=== PATIENT | male | born 1950 | race Caucasian/White ===

== ENCOUNTER 2019-09-08 03:05 | Inpatient (IN) ==
[2019-09-08 03:46] LABS: Appearance Urine Clear (Clear); Bilirubin Urine Negative (Negative); Blood Urine Negative (Negative); Color Urine Yellow; Glucose Urine UA Negative (Negative); Ketones Urine Negative (Negative); Leukocyte Esterase Urine Negative (Negative); Nitrite Urine Negative (Negative); Protein Urine Negative (Negative); Urobilinogen Urine Negative (Negative)
[2019-09-08 04:09] LABS: Basophils # (auto) 0.01 K/uL (0-0.2); Basophils % (auto) 0.2 %; Eosinophils # (auto) 0.08 K/uL (0-0.5); Eosinophils % (auto) 1.5 %; Hematocrit (blood only) 39.7 % (42-52); Hemoglobin 13.8 g/dL (14.0-18.0); Immature Granulocytes # (auto) 0.03 K/uL (0.00-0.02); Immature Granulocytes % (auto) 0.5 %; Lymphocytes # (auto) 1.42 K/uL (1.2-3.4); Lymphocytes % (auto) 25.8 %; Mean Corpuscular Hemoglobin 32.3 pg (25-34); Mean Corpuscular Hgb Conc 34.8 g/dL (32-36); Mean Platelet Volume 11.3 fL (7.4-10.4); Monocytes # (auto) 0.41 K/uL (0.11-0.59); Monocytes % (auto) 7.4 %; Neutrophils # (auto) 3.56 K/uL (1.4-6.5); Neutrophils % (auto) 64.6 %; Platelet Count 143 K/uL (130-400); RDW Coefficient of Variation 12.9 % (11.5-14.5); Red Blood Count 4.27 M/uL (4.7-6.1); White Blood Count 5.51 K/uL (4.8-10.8)
[2019-09-08 04:15] LABS: Amphetamines+Metham, Urine Neg (Neg); Barbiturates, Urine Neg (Neg); Benzodiazepine, Urine Neg (Neg); Cocaine, Urine Neg (Neg); MDMA (Ecstacy), Urine Neg (Neg); Methadone, Urine Neg (Neg); Opiate, Urine Neg (Neg); Phencyclidine, Urine Neg (Neg)
[2019-09-08 04:26] LABS: Albumin Level 3.8 gm/dl (3.4-5.0); BUN Creatinine Ratio 14.8 (10-20); Calcium 9.1 mg/dl (8.5-10.1); Creatinine Clr Calc Pharmacy 60.2 ml/min; Est GFR (African American) 85.3; Est GFR (Non-African American) 73.6
[2019-09-08 04:36] LABS: Albumin Globulin Ratio 1.2 (0.9-2); Bilirubin,Total 1.4 mg/dl (0.2-1); Globulin 3.3 gm/dl (2.5-4.0); Thyroid Stimulating Hormone 2.6 uIu/ml (0.300-4.500); Total Protein 7.1 gm/dl (6.4-8.2)
[2019-09-08 04:41] LABS: Acetaminophen < 2 ug/ml (10-30); Salicylate < 1.7 mg/dl (2.8-20)
--- NOTE | 2019-09-08 06:51 | Emergency Department Note ---
ED Visit Note 0649: Signout from Dr. antunez. Awaiting psychiatric final evaluation and placement. Patient will be evaluated by [facility], awaiting the recommendations. 1500: Vital signs stable. Case signed out to Dr. Sandoval. .
--- NOTE | 2019-09-08 07:04 | Emergency Department Note ---
Entered by Shahzad Aragon acting as a scribe for History of Present Illness General Chief complaint: Mental Health Evaluation Stated complaint: hallucinating Time Seen by Provider: 09/08/19 03:12 Source: patient History of Present Illness Onset (ago): day(s) (this morning) Location: head Pain Consistency: + other (an episode) Quality: + other (hallucinations) Associated symptoms: + other (Negative for CP, SOB, nausea, and vomiting.) The patient is a 68 year old male who presents to the emergency department with complaints of an episode of hallucinations occurring this morning. The patient states that he had an episode tonight that woke him up. He notes that when he woke it, it seemed like there were people there that were not there before. He reports that he then called police. He states that he felt fine prior to going to sleep. The patient believes that it is January 2023. He notes that he does not know what he ate for dinner. He reports that he does not see a psychiatrist or therapist. He denies any CP, SOB, nausea, and vomiting. The patient states that he does not have any chronic medical problems and he notes that he does not take any medication. He reports that he had a few glasses of wine today. The patient states that he did not use any drugs tonight. The patient does not remember an evaluation here in the emergency department 6 months ago for an episode similar to this of acute psychosis. EMS provide additional history stating that the patient was outside his home stating that there were people in his home and that there were people climbing out of the chimney of the [place]. The patient was insistent that [place] police signed their flashlights up to the chimney to see the people climbing out of it. Home Medications Home Medications Medication Instructions Recorded Confirmed Type No Known Home Medications 03/03/19 09/08/19 History Allergies Allergy/AdvReac Type Severity Reaction Status Date / Time No Known Allergies Allergy Unknown Verified 03/03/19 08:57 Past Med/Surg History Medical History (Updated 09/08/19 @ 06:53 by Shahzad Aragon) Mental health assessment declined (Inactive) No significant past medical history Social History Preferred Language: Filipino marital status: Single Current Living Situation: Alone current occupational status: retired Feels Safe at Home: Yes Smoking Status: Former smoker Tobacco Type: cigarettes ; Review of Systems See HPI for pertinent positives & negatives. and A total of 10 systems reviewed and were otherwise negative Physical Exam Vital Signs Vital Signs - 24 hr 09/08/19 03:13 09/08/19 04:39 Temperature 36.6 C Temperature Source Oral Pulse Rate 67 Pulse Rate [Finger] 85 Respiratory Rate 18 18 Blood Pressure 174/97 H Blood Pressure [Right Arm] 159/85 H Blood Pressure Mean 122 Blood Pressure Mean [Right Arm] 109 Pulse Oximetry 99 100 Oxygen Delivery Method Room Air Room Air Sepsis Recent Fever Within 48 Hours No Sepsis Action Taken by Nursing No Action Required General: The patient is cachectic appearing and disheveled. HEENT: Head - normocephalic and atraumatic Pupils are equal, round, and reactive to light. Extraocular eye muscles are intact, and sclera are anicteric. Nose - moist nasal mucosa without discharge. Mouth - moist buccal mucosa. Oropharynx is nonerythematous and there is no tonsillar exudate or edema noted. Neck: Supple; no JVD, nuchal rigidity, cervical lymphadenopathy. Heart: Regular rate and rhythm. There is a normal S1 and S2 with no murmurs, clicks, or gallops appreciated. Lungs: Clear to auscultation bilaterally with no wheezes, rales, or rhonchi. Abdomen: Soft, completely nontender, nondistended, with good bowel sounds. There are no palpable pulsatile masses or hepatosplenomegaly. There is no guarding, rigidity, or rebound noted. Extremities: No evidence of cyanosis, clubbing, or edema. There are easily palpa ble peripheral pulses. Skin: warm and dry with good turgor and no rashes. Psych: Confused about year and month, admits to alcohol use, denies any other drug use, believes that his hallucinating was actually a dream. Course Course 0320: The patient was evaluated in room A8. A complete history and physical exam was performed. 0508: The patient was felt to be medically cleared at this time. The psych case preparer and liner evaluated the patient. He exhibited more significant paranoid behavior. He states that his friend placed a chip in his arm in order to track him. There is concern that the patient is not able to take care of himself, so the psych case preparer and liner will petition a 302. 5206: Per review of EMR, the patient weighed 67.9kg in Feb, 2019. He now weighs 61.9 kg 0634: The patient is becoming agitated. He is telling the nurse that he is going to leave out the window. I suggested Ativan to help him relax. 0640: I rechecked the patient. We are awaiting the arrival of [facility]. he is refusing anything to help him relax. He is doing laps around the room. 0645: The patient was signed out to Dr. Butler at the change of shift. Medical Decision Making Differential Diagnosis Differential diagnoses include: thought disorder, acute psychosis, alcohol intoxication, and sleep disorder. Medical Records Attestation: I reviewed the patient's medical records. Home Medications Current Medication List: was personally reviewed by me Laboratory Data Attestation: I reviewed the patient's lab results. Result diagrams: 09/08/19 03:54 09/08/19 03:54 Lab Results 09/08/19 09/08/19 09/08/19 Range/Units 03:38 03:38 03:54 WBC 5.51 (4.8-10.8) K/uL RBC 4.27 L (4.7-6.1) M/uL Hgb 13.8 L (14.0-18.0) g/dL Hct 39.7 L (42-52) % MCV 93.0 (80-100) fL MCH 32.3 (25-34) pg MCHC 34.8 (32-36) g/dL RDW Std Deviation 44.0 (36.4-46.3) fL RDW Coeff of Jay 12.9 (11.5-14.5) % Plt Count 143 (130-400) K/uL MPV 11.3 H (7.4-10.4) fL Immature Gran % (Auto) 0.5 % Neut % (Auto) 64.6 % Lymph % (Auto) 25.8 % [place] % (Auto) 7.4 % Eos % (Auto) 1.5 % Baso % (Auto) 0.2 % Immature Gran # (Auto) 0.03 H (0.00-0.02) K/uL Neut # (Auto) 3.56 (1.4-6.5) K/uL Lymph # (Auto) 1.42 (1.2-3.4) K/uL [place] # (Auto) 0.41 (0.11-0.59) K/uL Eos # (Auto) 0.08 (0-0.5) K/uL Baso # (Auto) 0.01 (0-0.2) K/uL Sodium (136-145) mmol/L Potassium (3.5-5.1) mmol/L Chloride (98-107) mmol/L Carbon Dioxide (21-32) mmol/L Anion Gap (3-11) BUN (7-18) mg/dl Creatinine (0.6-1.4) mg/dl Est Cr Clr Drug Dosing ml/min Est GFR ( Amer) Est GFR (Non-Af Amer) BUN/Creatinine Ratio (10-20) Glucose (70-99) mg/dl Calcium (8.5-10.1) mg/dl Total Bilirubin (0.2-1) mg/dl AST (15-37) U/L ALT (12-78) U/L Alkaline Phosphatase (45-117) U/L Total Protein (6.4-8.2) gm/dl Albumin (3.4-5.0) gm/dl Globulin (2.5-4.0) gm/dl Albumin/Globulin Ratio (0.9-2) TSH (0.300-4.500) uIu/ml Urine Color Yellow Urine Appearance Clear (Clear) Urine pH 5.0 (4.5-7.5) Ur Specific [place] 1.020 (1.000-1.030) Urine Protein Negative (Negative) Urine Glucose (UA) Negative (Negative) Urine Ketones Negative (Negative) Urine Blood Negative (Negative) Urine Nitrite Negative (Negative) Urine Bilirubin Negative (Negative) Urine Urobilinogen Negative (Negative) Ur Leukocyte Esterase Negative (Negative) Salicylates (2.8-20) mg/dl Urine Opiates Screen Neg (Neg) Ur Methadone, Qual Neg (Neg) Acetaminophen (10-30) ug/ml Urine Barbiturates Neg (Neg) Ur Phencyclidine (PCP) Neg (Neg) U Amphetamin/Meth Scrn Neg (Neg) MDMA (Ecstasy) Screen Neg (Neg) U Benzodiazepines Scrn Neg (Neg) Ur Cocaine Metabolite Neg (Neg) U Marijuana (THC) Screen Neg (Neg) Ethyl Alcohol mg/dL (0-3) mg/dl 09/08/19 09/08/19 09/08/19 Range/Units 03:54 03:54 03:54 WBC (4.8-10.8) K/uL RBC (4.7-6.1) M/uL Hgb (14.0-18.0) g/dL Hct (42-52) % MCV (80-100) fL MCH (25-34) pg MCHC (32-36) g/dL RDW Std Deviation (36.4-46.3) fL RDW Coeff of Jay (11.5-14.5) % Plt Count (130-400) K/uL MPV (7.4-10.4) fL Immature Gran % (Auto) % Neut % (Auto) % Lymph % (Auto) % [place] % (Auto) % Eos % (Auto) % Baso % (Auto) % Immature Gran # (Auto) (0.00-0.02) K/uL Neut # (Auto) (1.4-6.5) K/uL Lymph # (Auto) (1.2-3.4) K/uL [place] # (Auto) (0.11-0.59) K/uL Eos # (Auto) (0-0.5) K/uL Baso # (Auto) (0-0.2) K/uL Sodium 142 (136-145) mmol/L Potassium 4.0 (3.5-5.1) mmol/L Chloride 109 H (98-107) mmol/L Carbon Dioxide 28 (21-32) mmol/L Anion Gap 5.0 (3-11) BUN 16 (7-18) mg/dl Creatinine 1.05 (0.6-1.4) mg/dl Est Cr Clr Drug Dosing 60.2 ml/min Est GFR ( Amer) 85.3 Est GFR (Non-Af Amer) 73.6 BUN/Creatinine Ratio 14.8 (10-20) Glucose 114 H (70-99) mg/dl Calcium 9.1 (8.5-10.1) mg/dl Total Bilirubin 1.4 H (0.2-1) mg/dl AST 25 (15-37) U/L ALT 24 (12-78) U/L Alkaline Phosphatase 61 (45-117) U/L Total Protein 7.1 (6.4-8.2) gm/dl Albumin 3.8 (3.4-5.0) gm/dl Globulin 3.3 (2.5-4.0) gm/dl Albumin/Globulin Ratio 1.2 (0.9-2) TSH 2.600 (0.300-4.500) uIu/ml Urine Color Urine Appearance (Clear) Urine pH (4.5-7.5) Ur Specific [place] (1.000-1.030) Urine Protein (Negative) Urine Glucose (UA) (Negative) Urine Ketones (Negative) Urine Blood (Negative) Urine Nitrite (Negative) Urine Bilirubin (Negative) Urine Urobilinogen (Negative) Ur Leukocyte Esterase (Negative) Salicylates < 1.7 L (2.8-20) mg/dl Urine Opiates Screen (Neg) Ur Methadone, Qual (Neg) Acetaminophen < 2 L (10-30) ug/ml Urine Barbiturates (Neg) Ur Phencyclidine (PCP) (Neg) U Amphetamin/Meth Scrn (Neg) MDMA (Ecstasy) Screen (Neg) U Benzodiazepines Scrn (Neg) Ur Cocaine Metabolite (Neg) U Marijuana (THC) Screen (Neg) Ethyl Alcohol mg/dL < 3.0 (0-3) mg/dl Blood Pressure Blood Pressure Findings: Elevated blood pressure Blood Pressure Disposition: elevated BP felt to be situational MDM Narrative The patient is a 68 year old male who presents to the emergency department with complaints of an episode of hallucinations occurring this morning. I remember this patient's case from 6 months ago. He was accompanied by his very good friend who explained that he has had previous episodes of hallucinations and acute psychosis. The patient is unwilling to sign himself in voluntarily or even recognize that there is any issue. We are awaiting evaluation by the [facility] delegate. The case will be signed out to Dr. Butler at change of shift awaiting disposition. Impression & Plan Acute psychosis, Paranoia, Weight loss Discharge Plan Visit Data Chief Complaint: Mental Health Evaluation Stated Complaint: hallucinating ED Provider: Indra Butler Discharge Problem: Acute psychosis, Paranoia, Weight loss Patient Disposition: Still a Patient Forms Stand Alone Forms: My [facility], Suicide Prevention Resources Prescriptions Prescriptions: No Action No Known Home Medications RF: 0 Referrals Referrals: PCP,NO [Primary Care Provider] - The scribe's documentation has been prepared under my direction and personally reviewed by me in its entirety. I confirm that the note above accurately reflects all work, treatment, procedures, and medical decision making performed by me.
[2019-09-08] MEDS ORDERED: SODIUM CHLORIDE 0.65% NA SOLN 45 ML (OCEAN) PRN (14:25)
[2019-09-08] MEDS ORDERED: MAGNESIUM HYDROXIDE SUSP 30 ML UDC PO PRN (14:25)
[2019-09-08] MEDS ORDERED: ACETAMINOPHEN 325 MG TAB PO PRN (14:25)
[2019-09-08] MEDS ORDERED: BISMUTH SUBSALICYLATE PER ML OMNICELL CHARGE PO PRN (14:25)
[2019-09-08] MEDS ORDERED: ALUMINUM/MAGNESIUM SUSP 30 ML UDC PO PRN (14:25)
--- NOTE | 2019-09-08 15:25 | Emergency Department Note ---
ED Visit Note I assumed care at the change of shift, the patient was awaiting bed placement. The patient has been accepted at this [facility] facility, [address]. He is being transferred upstairs. .
--- NOTE | 2019-09-08 16:05 | History & Physical ---
Date of Service September 08, 2019 Impression / Recommendations Impression 68-year-old male admitted involuntarily for inpatient psychiatric admission on 09/08/19 after calling 911 to report paranoia as a result of hallucinations. Pt was brought to the ED, and there was reportedly concern for patient's safety when considering discharge home - as he continues to live independently with some assistance from a neighbor/partner. He has a reported diagnosis of Lewy body dementia. A 302 warrant was issued by [facility] and ED physician signed off on commitment, recommending inpatient psychiatric treatment. Pt was referred to multiple [facility] facilities, but was not accepted. He is accepted to our unit to coordinate discharge planning to allow for safe return home with adequate supervision or other appropriate discharge plans. Pt is not a reliable historian, and collateral information from his partner will be appreciated. It is not clear that he has a formal psychiatric history. Will will order trazodone 25mg TID scheduled to reduce anxiety and calm any agitation. Will also have 25mg doses available prn for acute anxiety/agitation. Pt will be encouraged to participate in group programming where appropriate/tolerated. We will work with his outpatient supports to coordinate appropriate discharge plans. At this time, patient is presenting as acutely confused and disoriented - he is at risk of harm to self presently, and it is not likely he would be able to function at home independently in his current condition. Inpatient psychiatric admission is medically necessary until this discharge options can be explored. Dr. Lacey Gold was directly involved in review and discussion of the patient's case and participated in medical decision making regarding treatment recommendations. (1) Paranoia: 09/08 - Paranoia and reported hallucinations are likely related to underlying Lewy body dementia, rather than a primary psychiatric condition - none the less, they are interfering with safe functioning within the home and patient is not considered safe for discharge without a more formal review of safety planning - Will attempt to gather collateral information to determine if there is a prior psychiatric history or other concerns to suggest his paranoia is better explained as a primary thought discharge - Coordinate care with Dr. Ronquillo at [facility] - Encourage activities that will increased patient's comfort - including calming familiar activities, permission to have familiar items - Family meeting with outpatient supports to discuss discharge options - as it is not clear if patient is safe to be living independently - Will offer trazodone 25mg TID scheduled to reduce anxiety; avoid neuroleptics as they are generally avoided in individuals with Lewy body dementia - Will also have trazodone 25mg available prn for acute anxiety/agitation - can adjusted dosing based on tolerance (2) Lewy body dementia with behavioral disturbance: 09/08 - Coordinate care with outpatient provider, unclear if patient is working with a neurologist or other specialist - It is likely some consideration will need to be put into placement options as his condition progresses - Patient should be frequently reoriented to person, place, time, event, and intervention to be performed. Pt should be permitted to utilize corrective lenses and assistive hearing devices when appropriate. Permit use of familiar comfort items when appropriate as well. Keep patient awake and active during the day, with light on in room. Conversely, dark room should be maintained at night with sleep being encouraged. Engage patient in group participation when appropriate/tolerated - MNPR due to concern for agitation Risk Factors Assessment Male: Yes : Yes Health Problems: Yes Mental Health Diagnoses: No Protective Factors Assessment Employed: No (Retired) Psychiatric History Identifying Data NARESH SOTO is a 68-year-old M who currently lives independently in [place], [place]. Pt has no known psychiatric diagnoses, but was reportedly recently diagnosed with Lewy Body dementia. He was admitted on 09/08/19 14:25 on a 302 involuntary commitment for paranoia, reports of hallucinations, and perceived inability to care for self outside of the inpatient setting. Pt is a limited historian, and information is gathered from hospital documentation. Chief Complaint "So, do you want to tell me what's going on here? Where am I?" History of Present Illness Naresh Soto is a 68-year-old male admitted involuntarily for inpatient psychiatric treatment after presenting to the ED for mental health evaluation. He had reportedly called 911 and verbalized paranoia related to hallucinations he had been experiencing. ED documentation suggests the patient had awoken from a nap to experience visual hallucinations, causing him to believe that other people were in his home. It is reported that patient has a diagnosis of Lewy body dementia. He had one ED presentation with similar concerns back in 02/2019 - and was discharged home with care to be provided by his partner. Partner remains involved in his treatment presently. Multiple referrals were placed for geripsych treatment, but none were accepting the patient for admission. This provider received report that the patient has overwhelmed and appearing distressed upon arrival to unit. This provider attempted to meet with the patient to complete psychiatric H&P and help the patient feel more comfortable. He is observed to be standing in the hallway outside of his room. He is pleasant with initial exchange of greetings, wiling to shake this provider's hand. He then requests to know what is going on and when he will be permitted to leave. Pt was informed he has been admitted to the behavioral health unit, and he continues to demonstrate confusion. He requests to know where the other "inductees" are kept, and when asked to further clarify this inquiry - he is unable to do so. Pt requested to speak to his /partner, and then requested to go home. He implies that "Maribell is in on this, but I'm not staying - she can stay if she wants but I'm going home." Pt was informed that we would attempt to reach out to his partner to help ease the transition. He made multiple comments about his roommate "vomiting on the floor over there" - which were not true statements. Pt shares with this provider "I remember you from the last time, and I don't think things ended well, I want to go home." Pt was informed that he would at least be spending the night with us, and was asked if this provider could get him anything to feel more comfortable. He requests his shoes. When informed the laces would need to be removed in order for them to be worn, he states - "What? Why? Are they not my laces? Are you selling shoes or something? I want my shoes!" Pt was not able to provide any productive history - and was permitted to visit with his /partner who arrived on the unit shortly after our initial encounter. Past Psychiatric History Previous Psych History: Unknown - no verified psychiatric history Outpatient Services: Reportedly has seen Dr. Ronquillo at [facility] - continued involvement in unclear presently Previous Psych Admissions: Unknown Describe Attempts in the Past: denies Allergies Allergy/AdvReac Type Severity Reaction Status Date / Time No Known Allergies Allergy Unknown Verified 03/03/19 08:57 Home Medications Home Medications Medication Instructions Recorded Confirmed Type No Known Home Medications 03/03/19 09/08/19 History Family History Family History of: None Alcohol History Hx of Alcohol Use Over the Past 12 Months: Yes (reports drinking wine, unknown amount) Unknown alcohol consumption Smoking Use tobacco type: cigarettes Smoking Status: Former smoker Substance History Hx of Prescription Med Misuse Over the Past 12 Months: No Hx of Over the Counter Med Misuse Over the Past 12 Months: No Hx of Inhalent Misuse Over the Past 12 Months: No Hx of Organic Substance Use Over the Past 12 Months: No Hx of Illegal Substances/Street Drug Use Over Past 12 Months: No Problems as a Result of Past Substance Use: None Identified Substance use history is unknown Personal History Living Arrangements: Apartment (independently, pareshnter lives close-by) Legal Problems Comment: Unknown Psychological Trauma History Comment: Unknown Patient History Medical History (Updated 09/08/19 @ 18:49 by Malou Huston PA-C) Lewy body dementia with behavioral disturbance Mental health assessment declined (Inactive) No significant past medical history Social History Preferred Language: Setswana Communication Ability: Effective Communication Ability Comment: requires simple tasks with reassurance and assistance [employer] [place] [employer] [place] Required: No Beliefs That Will Affect Care: None marital status: Single Current Living Situation: Alone current occupational status: retired Feels Safe at Home: Yes Smoking Status: Former smoker Tobacco Type: cigarettes ; Review of Systems Review of Systems: Constitutional: denied Cardiovascular: denied Respiratory: denied Gastrointestinal: denied Neurological: denied Psychiatric: denies symptoms other than stated above Total of at least 10 systems reviewed, pertinent positives as above and in HPI. Physical Exam Psychiatric: Orientation: alert, oriented to person and + guarded; + not oriented to place, + not oriented to time and + uncooperative Apperance: appropriately dressed, + disheveled and appeared stated age Thin-appearing male, appearing anxiety and somewhat distressed. He is observed to be pacing during encounter, holding all of his belongings. He is dressed in paper scrubs. He has long hair and a long miner - he appears clean, but disheveled. Eye Contact: + fair eye contact Motor Behavior: + psychomotor agitation (appearing restless and somewhat agitated) Speech: normal rate/rhythm/volume of speech (irritable tone) Affect: + irritable affect and mood congruent with affect Mood: + irritable mood ("I don't like this. I remember what happened last time. I'm not staying") Thought Process: + tangential thought process; + thought process not goal directed, + thought process not linear or logical, + thought process not clear or coherent and + thought association not intact Disorganized, unable to participate in productive conversation Thought Content: + preoccupation and + paranoid (believing he is an "inductee" into some "program") Suicidal Thoughts: denies suicidal thoughts Homicidal Thoughts: denies homicidal thoughts Hallucinations: + auditory hallucinations and + visual hallucinations Reports of hallucinations leading to ED presentation, though patient is unable to describe them presently Cognition: + recent memory not intact, + remote memory not intact and + attention not intact Insight: + severely impaired insight Judgement: + severely impaired judgement Vital Signs (Past 24 Hours): Last Vital Signs Temp 36.6 C 09/08/19 03:13 Pulse 78 09/08/19 15:24 Resp 20 09/08/19 15:24 BP 158/83 H 09/08/19 15:24 Pulse Ox 94 09/08/19 15:24 Exam Statement: A physical exam was performed in the ER prior to admission to the unit by Dr. Mayelin Jenkins DO. I accept that physical as correct/medical clearance for the inpatient physical exam. Results & Data Laboratory Results Laboratory Results - last 24 hr 09/08/19 09/08/19 09/08/19 03:38 03:38 03:54 WBC 5.51 RBC 4.27 L Hgb 13.8 L Hct 39.7 L MCV 93.0 MCH 32.3 MCHC 34.8 RDW Std Deviation 44.0 RDW Coeff of Jay 12.9 Plt Count 143 MPV 11.3 H Immature Gran % (Auto) 0.5 Neut % (Auto) 64.6 Lymph % (Auto) 25.8 O'Brien % (Auto) 7.4 Eos % (Auto) 1.5 Baso % (Auto) 0.2 Immature Gran # (Auto) 0.03 H Neut # (Auto) 3.56 Lymph # (Auto) 1.42 O'Brien # (Auto) 0.41 Eos # (Auto) 0.08 Baso # (Auto) 0.01 Sodium Potassium Chloride Carbon Dioxide Anion Gap BUN Creatinine Est Cr Clr Drug Dosing Est GFR ( Amer) Est GFR (Non-Af Amer) BUN/Creatinine Ratio Glucose Calcium Total Bilirubin AST ALT Alkaline Phosphatase Total Protein Albumin Globulin Albumin/Globulin Ratio TSH Urine Color Yellow Urine Appearance Clear Urine pH 5.0 Ur Specific [place] 1.020 Urine Protein Negative Urine Glucose (UA) Negative Urine Ketones Negative Urine Blood Negative Urine Nitrite Negative Urine Bilirubin Negative Urine Urobilinogen Negative Ur Leukocyte Esterase Negative Salicylates Urine Opiates Screen Neg Ur Methadone, Qual Neg Acetaminophen Urine Barbiturates Neg Ur Phencyclidine (PCP) Neg U Amphetamin/Meth Scrn Neg MDMA (Ecstasy) Screen Neg U Benzodiazepines Scrn Neg Ur Cocaine Metabolite Neg U Marijuana (THC) Screen Neg Ethyl Alcohol mg/dL 09/08/19 09/08/19 09/08/19 03:54 03:54 03:54 WBC RBC Hgb Hct MCV MCH MCHC RDW Std Deviation RDW Coeff of Jay Plt Count MPV Immature Gran % (Auto) Neut % (Auto) Lymph % (Auto) O'Brien % (Auto) Eos % (Auto) Baso % (Auto) Immature Gran # (Auto) Neut # (Auto) Lymph # (Auto) O'Brien # (Auto) Eos # (Auto) Baso # (Auto) Sodium 142 Potassium 4.0 Chloride 109 H Carbon Dioxide 28 Anion Gap 5.0 BUN 16 Creatinine 1.05 Est Cr Clr Drug Dosing 60.2 Est GFR ( Amer) 85.3 Est GFR (Non-Af Amer) 73.6 BUN/Creatinine Ratio 14.8 Glucose 114 H Calcium 9.1 Total Bilirubin 1.4 H AST 25 ALT 24 Alkaline Phosphatase 61 Total Protein 7.1 Albumin 3.8 Globulin 3.3 Albumin/Globulin Ratio 1.2 TSH 2.600 Urine Color Urine Appearance Urine pH Ur Specific [place] Urine Protein Urine Glucose (UA) Urine Ketones Urine Blood Urine Nitrite Urine Bilirubin Urine Urobilinogen Ur Leukocyte Esterase Salicylates < 1.7 L Urine Opiates Screen Ur Methadone, Qual Acetaminophen < 2 L Urine Barbiturates Ur Phencyclidine (PCP) U Amphetamin/Meth Scrn MDMA (Ecstasy) Screen U Benzodiazepines Scrn Ur Cocaine Metabolite U Marijuana (THC) Screen Ethyl Alcohol mg/dL < 3.0 Current Inpatient Medications Current Inpatient Medications: Current Inpatient Medications Acetaminophen (Tylenol) 650 mg PO Q4H PRN PRN Reason: Headache or Minor Fever Stop: 10/08/19 14:24 Al Hydrox/Mg Hydrox/Simethicone (Maalox) 30 ml PO Q4H PRN PRN Reason: GI Upset Stop: 10/08/19 14:24 Bismuth Subsalicylate (Kaopectate) 15 ml PO PRN PRN PRN Reason: Loose Stool Stop: 10/08/19 14:24 Hydroxyzine HCl (Vistaril) 50 mg PO HSZ PRN PRN Reason: Insomnia Stop: 10/08/19 14:37 Hydroxyzine HCl (Vistaril) 25 mg PO Q4H PRN PRN Reason: Anxiety Stop: 10/08/19 14:24 Magnesium Hydroxide (Milk Of Magnesia) 30 ml PO DAILY PRN PRN Reason: Constipation Stop: 10/08/19 14:24 Sodium Chloride ([place] Nasal) 1 - 2 sprays NA PRN PRN PRN Reason: Nasal Dryness/Congestion Stop: 10/08/19 14:24
[2019-09-08] MEDS ORDERED: TRAZODONE HCL 50 MG TAB PO PRN (18:17)
[2019-09-08] MEDS: TRAZODONE HCL 50 MG TAB PO SCH (21:22)
[2019-09-09] MEDS: TRAZODONE HCL 50 MG TAB PO SCH ×3 (08:17→20:44)
[2019-09-09] MEDS ORDERED: INFLUENZA VACCINE HIGH DOSE 65+ 0.5 ML SYR IM ONE (08:30)
[2019-09-09] MEDS ORDERED: INFLUENZA ADMINISTRATION CHARGE ONE (08:30)
--- NOTE | 2019-09-09 08:41 | Psychiatric Progress Note ---
Date of Service September 09, 2019 Impression / Recommendations Impression 68-year-old male admitted involuntarily for inpatient psychiatric treatment on 09/08/19 after calling 911 to report paranoia and hallucinations. Pt was brought to the ED, and there was reportedly concern for patient's safety when considering discharge home - as he continues to live independently with some assistance from a neighbor/partner. He has a reported diagnosis of Lewy body dementia. A 302 warrant was issued by [facility] [employer] and ED physician signed off on commitment, recommending inpatient psychiatric treatment. Pt was referred to multiple [facility] facilities, but was not accepted. He is accepted to our unit to coordinate discharge planning to allow for safe return home with adequate supervision or other appropriate discharge plans. He is a poor historian, and collateral information has been obtained from his significant other, we have also requested outpatient records to clarify diagnoses and past medication trials. It does not appear that he has a history of mental illness based on the available information, and therefore would not meet criteria for a 303 involuntary commitment. He was distraught on admission, so a trial of low-dose trazodone has been started for anxiety and agitation presumably associated with dementia. A meeting is scheduled with his significant other and the social service assistant today to explore ways to increase outpatient supports and recommendations for supervised living situation. Inpatient treatment is medically necessary at this time as he remains at risk of harm to himself due to inability to provide for his own basic needs as a result of confusion, disorientation, paranoia, and hallucinations. (1) Paranoia: 09/08 - Paranoia and reported hallucinations are likely related to underlying Lewy body dementia, rather than a primary psychiatric condition - none the less, they are interfering with safe functioning within the home and patient is not considered safe for discharge without a more formal review of safety planning - Will attempt to gather collateral information to determine if there is a prior psychiatric history or other concerns to suggest his paranoia is better explained as a primary thought discharge - Coordinate care with PCP, Dr. Tiffany Kern, at [facility] -request records. - Encourage activities that will increased patient's comfort - including calming familiar activities, permission to have familiar items - Family meeting with outpatient supports to discuss discharge options - as it is not clear if patient is safe to be living independently - Will offer trazodone 25mg TID scheduled to reduce anxiety; avoid neuroleptics as they are generally avoided in individuals with Lewy body dementia - Will also have trazodone 25mg available prn for acute anxiety/agitation - can adjusted dosing based on tolerance 09/09 -Appears to be related to Lewy body dementia based on collateral information from . We have requested records from [facility] where he sees his PCP and p sychiatrist, but have not yet received them. We will attempt to contact his psychiatrist to coordinate care. -We are avoiding a trial of an atypical due to the black box warning and patient's inability to provide informed consent, as well as recent trial of quetiapine which worsened agitation. Continue trazodone for now, no signs of oversedation/side effects. -Family meeting with - explored options for increased supports (Office of Aging, respite care, in home nursing/aides, assisted living or snf placement). She had objections to most of these, but we will continue to explo re options, is clearly the current situation is not sustainable, especially given the progressive nature of his illness. (2) Lewy body dementia with behavioral disturbance: 09/08 - Coordinate care with outpatient provider, unclear if patient is working with a neurologist or other specialist - It is likely some consideration will need to be put into placement options as his condition progresses - Patient should be frequently reoriented to person, place, time, event, and intervention to be performed. Pt should be permitted to utilize corrective wenceslao ses and assistive hearing devices when appropriate. Permit use of familiar comfort items when appropriate as well. Keep patient awake and active during the day, with light on in room. Conversely, dark room should be maintained at night with sleep being encouraged. Engage patient in group participation when appropriate/tolerated - MNPR due to concern for agitation. Risk Factors Assessment Male: Yes : Yes Do You Have Access To A Gun?: No Health Problems: Yes Mental Health Diagnoses: No Substance Use Disorders: No Previous Attempt: No Previous Psychiatric Hospitalization: No Hopelessness: No Smoker: No Protective Factors Assessment : Yes Responsible for Young Children: No Employed: No (Retired) Stable Relationships: Yes Good Rapport with Provider: No Interval History Identifying Information NARESH NIXON is a 68-year-old M who currently lives independently in [place], [place]. Pt has no known psychiatric diagnoses, but was reportedly recently diagnosed with Lewy Body dementia. He was admitted on 09/08/19 14:25 on a 302 involuntary commitment for paranoia, reports of hallucinations, and inability to care for self outside of the inpatient setting. Chief Complaint "Who are you?" Review of Systems Notes Attempted review of systems, but patient answers with unrelated information Sleep Information Total Hours of Sleep: 4.75 Sleep Comments: pt on q-15 minute checks. pt needed to be redirected at times to his room during the night. Meal Information Percent Meal Consumed - Dinner: 75 Subjective Subjective Patient was seen & assessed and interval progress reviewed with nursing and social work. Staff report he remains confused, has difficulty making simple decisions, needs direction to his room/bathroom, is oriented only to himself. He would not sign his treatment plan, and appears unable to comprehend most questions asked during the assessment process. Staff spoke with his , who stated she is his power of city attorney, but not for mental health treatment. She lives next door and assists with appointments, transportation, meals, and laundry. He is on a wait list for assisted living at [facility]. She reported he had recently had medication trials of quetiapine and rivastigmine, which both caused worsening of symptoms. On my assessment, the patient appears confused and is unable to provide any meaningful information. After introducing myself and explained my role, he says he did not asked to see a doctor, and does not understand why I am here. He then talks about "a lot of unfortunate incidents, like losing my keys." He does not appear to understand that he is in the hospital, despite providing orientation information several times. He cannot explain how he came to be in the hospital, cannot state where he lives, who he has for support, or what his plans are when he leaves the hospital. He later states that he "has multiple homes, and is planning to go live in [facility], or possibly "some part of [facility]." When talking about his family meeting scheduled for today with his , he says that there are "two Maribell Carrillo, which when are you talking about?" When asked if he is , he says "in [place] there is a law that you can make an incision and you become left-handed or right-handed." He demands to be discharged today, and when I attempted to explain our concerns and goals of inpatient treatment, he states "you realize I am 39 years old." Met with social service assistant and patient's . See social work notes for additional details. In short, patient's states they lives next door to one another and she is his full-time caregiver. She denies any safety concerns, stating he has no history of violence, no access to weapons, and she is generally able to de-escalate him when he experiences visual hallucinations. States that he has visual hallucinations at baseline, and was seeing a psychiatrist at [facility] who diagnosed frontotemporal dementia and tried 2 different medi cations, neither of which were helpful, and actually seemed to worsen agitation. She provides for all of his basic needs, gets him food, drives him places, and helps him to take care of his cats. Although she has looked into assisted living, she is not sure whether she wants to place him yet, as she fears that it will be "the beginning of the end" for him. He has been struggling with memory problems for 3-1/2 years, and often refuses to go to the doctor or to take medication. She states that he was having a very bad day yesterday, and became frightened after he had visual hallucinations of people in his room, and called police. He is called the police before, and typically they respond and talk with her, as often his calls are not reality based. She denies that he has had any problems with wandering, states he is eating well, although reports that her caregiving duties can be overwhelming at times and that it would be helpful to have assistance. Reviewed the services she has explored in the past, many of which she was unhappy with. Physical Exam Psychiatric Thin white male appearing stated age. Long shaffer hair, casually dressed, adequately groomed. Standing in room in no acute distress, very reluctant to sit down for the interview. Appears guarded, paranoid. Good eye contact, no abnormal movements. Affect is restricted to guarded and confused. Thoughts are disorganized, often answering with unrelated and nonsensical information. Alert but oriented to self only, not to place, time, cannot state where he lives, if he is , or the names of people he knows. No active hallucinations at the time of the interview, but appears paranoid and suspicious. Denies suicidal and homicidal thoughts. Insight and judgment are severely impaired. Memory is severely impaired. Vital Signs (Past 24 Hours) Last Vital Signs Temp 36.5 C 09/09/19 06:52 Pulse 60 09/09/19 06:53 Resp 18 09/09/19 06:52 BP 144/82 H 09/09/19 06:53 Pulse Ox 94 09/08/19 15:24 Results & Data Current Inpatient Medications Current Inpatient Medications: Current Inpatient Medications Acetaminophen (Tylenol) 650 mg PO Q4H PRN PRN Reason: Headache or Minor Fever Stop: 10/08/19 14:24 Al Hydrox/Mg Hydrox/Simethicone (Maalox) 30 ml PO Q4H PRN PRN Reason: GI Upset Stop: 10/08/19 14:24 Bismuth Subsalicylate (Kaopectate) 15 ml PO PRN PRN PRN Reason: Loose Stool Stop: 10/08/19 14:24 Hydroxyzine HCl (Vistaril) 50 mg PO HSZ PRN PRN Reason: Insomnia Stop: 10/08/19 14:37 Hydroxyzine HCl (Vistaril) 25 mg PO Q4H PRN PRN Reason: Anxiety Stop: 10/08/19 14:24 Magnesium Hydroxide (Milk Of Magnesia) 30 ml PO DAILY PRN PRN Reason: Constipation Stop: 10/08/19 14:24 Sodium Chloride ([place] Nasal) 1 - 2 sprays NA PRN PRN PRN Reason: Nasal Dryness/Congestion Stop: 10/08/19 14:24 Trazodone HCl (Desyrel) 25 mg PO TID DANI Stop: 10/08/19 20:59 Last Admin: 09/09/19 08:17 Dose: 25 mg Documented by: Trazodone HCl (Desyrel) 25 mg PO Q4H PRN PRN Reason: anxiety/agitation Stop: 10/08/19 18:29 Mental Health & Subst Abuse Tx Therapist Name of Therapist: denies Pneumatic Tester Mechanic Name of Pneumatic Tester Mechanic: denies
[2019-09-10] MEDS: TRAZODONE HCL 50 MG TAB PO SCH ×4 (08:29→21:09)
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
[2019-09-10] MEDS ORDERED: DIPHTHERIA/TETANUS/PERTUSSIS 0.5 ML SYR/VIAL IM ONE (16:18)
[2019-09-11] MEDS: TRAZODONE HCL 50 MG TAB PO SCH ×3 (09:38→21:05)
--- NOTE | 2019-09-11 10:53 | Psychiatric Progress Note ---
Date of Service September 11, 2019 Impression / Recommendations Impression 68-year-old male admitted involuntarily for inpatient psychiatric treatment on 09/08/19 after calling 911 to report paranoia and hallucinations. Pt was brought to the ED, and there was reportedly concern for patient's safety when considering discharge home. He has a reported diagnosis of Lewy body dementia. A 302 warrant was issued by [facility] and ED physician signed off on commitment, recommending inpatient psychiatric treatment. Pt was referred to multiple [facility] facilities, but was not accepted. He was accepted to our unit to coordinate discharge planning to allow for safe return home with adequate supervision or other appropriate discharge plans. He is a poor historian, and collateral information has been obtained from his significant other, we have also requested outpatient records to clarify diagnoses and past medication trials. It does not appear that he has a history of mental illness based on the available information, and therefore would not meet criteria for a 303 involuntary commitment. He was distraught on admission, so a trial of low-dose trazodone has been started for anxiety and agitation presumably associated with dementia. He has been accepted by [facility] for placement on their memory unit pending bed availability. Inpatient treatment is medically necessary at this time as he remains at risk of harm to himself due to inability to provide for his own basic needs as a result of confusion, disorientation, paranoia, and hallucinations. (1) Paranoia: 09/08 - Paranoia and reported hallucinations are likely related to underlying Lewy body dementia, rather than a primary psychiatric condition - none the less, they are interfering with safe functioning within the home and patient is not considered safe for discharge without a more formal review of safety planning - Will attempt to gather collateral information to determine if there is a prior psychiatric history or other concerns to suggest his paranoia is better explained as a primary thought discharge - Coordinate care with PCP, Dr. Tiffany Kern, at [facility] -request records. - Encourage activities that will increased patient's comfort - including nick les familiar activities, permission to have familiar items - Family meeting with outpatient supports to discuss discharge options - as it is not clear if patient is safe to be living independently - Will offer trazodone 25mg TID scheduled to reduce anxiety; avoid neuroleptics as they are generally avoided in individuals with Lewy body dementia - Will also have trazodone 25mg available prn for acute anxiety/agitation - can adjusted dosing based on tolerance 09/09 -Appears to be related to Lewy body dementia based on collateral information from . We have requested records from [facility] where he sees his PCP and psychiatrist, but have not yet received them. We will attempt to contact his psychiatrist to coordinate care. -We are avoiding a trial of an atypical due to the black box warning and patient's inability to provide informed consent, as well as recent trial of quetiapine which worsened agitation. Continue trazodone for now, no signs of oversedation/side effects. -Family meeting with - explored options for increased supports (Office of Aging, respite care, in home nursing/aides, assisted living or [facility] placement). She had objections to most of these, but we will continue to explore options, is clearly the current situation is not sustainable, especially given the progressive nature of his illness. 09/10 - Continue trazodone 25mg in the morning and afternoon - will increase bedtime dose to 50mg as patient state he has not been sleeping well (nursing reports 4 hours last evening) - Continue to discuss long-term options with , as patient will eventually require a locked memory unit in order to appropriate supervise and manage his behaviors - Pt did receive an evaluation from [facility] today - though availability is uncertain - Continue to encourage participation in group programming when appropriate 09/11 -Patient continues to demonstrate paranoia and other delusional ideation most likely secondary to his underlying neurocognitive disorder. -Could consider low-dose atypical antipsychotic trial. In this case I would probably favor olanzapine with relatively low risk for EPS but still a potent antipsychotic at low doses. This medication could be started at a very low dose such as 1.25 mg p.o. nightly watching closely for EPS however, due to likely pending discharge at termination of involuntary commitment, I will defer this to consideration of outpatient treatment. If he does demonstrate EPS with atypical antipsychotic treatment, alternatively Nuplazid could be considered. -Low-dose trazodone is a reasonable choice for acute anxiety. Antidepressant trial such as an SSRI could also be considered in the future which may help reduce likelihood of future anxiety and associated paranoia however antidepressant pharmacotherapy can sometimes worsen hallucinations and agitation and will also be deferred at this time to the judgment of his outpatient provider. (2) Lewy body dementia with behavioral disturbance: 09/08 - Coordinate care with outpatient provider, unclear if patient is working with a neurologist or other specialist - It is likely some consideration will need to be put into placement options as his condition progresses - Patient should be frequently reoriented to person, place, time, event, and intervention to be performed. Pt should be permitted to utilize corrective lenses and assistive hearing devices when appropriate. Permit use of familiar comfort items when appropriate as well. Keep patient awake and active during the day, with light on in room. Conversely, dark room should be maintained at night with sleep being encouraged. Engage patient in group participation when appropriate/tolerated - MNPR due to concern for agitation. 09/10 - Will need to clarify outpatient treatment team, as his PCP is reportedly retiring and it is uncertain if he is actively following with a neurologist - Will attempt to gather collateral information in order to coordinate with outpatient team 09/11 -As best as I can tell at the present time patient is felt to be at his recent cognitive and functional baseline. As such, extending his commitment behind the 302 does not appear appropriate if he can be safely discharged to a less restrictive setting. His delusions and hallucinations are likely to be chronic, even with treatment. As his insight and recall are impaired, he would require 24-hour supervision to reduce risk of dangerous behaviors associated with psychosis. -Staff to clarify bed availability with [facility] memory care unit today for discharge planning -Both outpatient psychiatric follow-up and neurology follow-up recommended for continued treatment Risk Factors Assessment Male: Yes : Yes Do You Have Access To A Gun?: No Health Problems: Yes Mental Health Diagnoses: No Substance Use Disorders: No Previous Attempt: No Previous Psychiatric Hospitalization: No Hopelessness: No Smoker: No Protective Factors Assessment : Yes Responsible for Young Children: No Employed: No (Retired) Stable Relationships: Yes Good Rapport with Provider: No Interval History Identifying Information NARESH NIXON is a 68-year-old M who currently lives independently in [place], [place]. Pt has no known psychiatric diagnoses, but was reportedly recently diagnosed with Lewy Body dementia. He was admitted on 09/08/19 14:25 on a 302 involuntary commitment for paranoia, reports of hallucinations, and inability to care for self outside of the inpatient setting. Chief Complaint "I woke up and I was somewhere else". Review of Systems Notes Patient is not a reliable historian due to dementia. 10 point review of systems is diffusely negative today except as above. Sleep Information Total Hours of Sleep: 5 Sleep Comments: pt on q-15 minute checks Meal Information Percent Meal Consumed - Breakfast: 100 Percent Meal Consumed - Lunch: 100 Percent Meal Consumed - Dinner: 100 Nutrition Comment: per meal log Subjective Subjective Patient was seen & assessed and interval progress reviewed with treatment team. Patient is on a 302 involuntary commitment which will on Sunday at 7:28 in the morning. Clinical history reviewed with staff. Apparently he has a prior diagnosis of Lewy body dementia for at least the last year. Reportedly does not understand why he is here. Has not been physically aggressive. Moments of mild agitation without any significant behavioral decompensation. Has been partially compliant with medication but declined morning trazodone today. On interview patient is clearly disoriented. He is unable to recall the name of the town that he is in, what type of building he is in, or the reason for his admission. He cannot identify or recall any particular medical history. He minimizes concern for problems with memory. "I am getting older." Thoughts are not consistently well organized and can become loose and illogical quickly. He demonstrates frequent derailment. He describes some paranoid ideation believing that things are being stolen and he frequently references potential for litigation. He tells me that he is extremely wealthy and "sort of famous." He reports he was last year but initially cannot recall the name of his , ultimately reporting that her name is Meenakshi. He does acknowledge eyes playing tricks, sometimes seeing people who will disappear after he blinks. He provides an unclear account of auditory hallucinations or tactile hallucinations. He denies feeling unsafe here or at home. He denies any suicidal or homicidal ideation. Brief [facility] mental health notes obtained from outpatient clinic reviewed. As of letter May 26, 2019 patient felt not to have capacity for medical or legal decisions due to Lewy body dementia. Therapy note 05/30/2019 indicates diagnosis of adjustment disorder, rule out dementia, hallucinations. Physical Exam Psychiatric Orientation: alert, cooperative and + guarded; + not oriented x 3 Apperance: + disheveled Eye Contact: good eye contact Motor Behavior: no abnormal motor movements; no psychomotor retardation, n EPS and n tremor clear without aphasia Affect: + blunted affect Mood: no depressed mood, no anxious mood and no angry mood Thought Process: + looseness of associations Thought Content: + paranoid and + delusions Suicidal Thoughts: denies suicidal thoughts, denies suicidal plan and denies suicidal intent Homicidal Thoughts: denies homicidal thoughts, denies homicidal plan and denies homicidal intent Hallucinations: + visual hallucinations; no auditory hallucinations and no tactile hallucinations Cognition: + recent memory not intact and + attention not intact Insight: + poor insight Judgement: + limited judgement Vital Signs (Past 24 Hours) Last Vital Signs Temp 36.6 C 09/11/19 06:43 Pulse 79 09/11/19 06:44 Resp 18 09/11/19 06:43 BP 101/66 09/11/19 06:44 Pulse Ox 94 09/08/19 15:24 Results & Data Current Inpatient Medications Current Inpatient Medications: Current Inpatient Medications Acetaminophen (Tylenol) 650 mg PO Q4H PRN PRN Reason: Headache or Minor Fever Stop: 10/08/19 14:24 Al Hydrox/Mg Hydrox/Simethicone (Maalox) 30 ml PO Q4H PRN PRN Reason: GI Upset Stop: 10/08/19 14:24 Bismuth Subsalicylate (Kaopectate) 15 ml PO PRN PRN PRN Reason: Loose Stool Stop: 10/08/19 14:24 Hydroxyzine HCl (Vistaril) 50 mg PO HSZ PRN PRN Reason: Insomnia Stop: 10/08/19 14:37 Hydroxyzine HCl (Vistaril) 25 mg PO Q4H PRN PRN Reason: Anxiety Stop: 10/08/19 14:24 Magnesium Hydroxide (Milk Of Magnesia) 30 ml PO DAILY PRN PRN Reason: Constipation Stop: 10/08/19 14:24 Sodium Chloride (Brillion Nasal) 1 - 2 sprays NA PRN PRN PRN Reason: Nasal Dryness/Congestion Stop: 10/08/19 14:24 Trazodone HCl (Desyrel) 25 mg PO Q4H PRN PRN Reason: anxiety/agitation Stop: 10/08/19 18:29 Trazodone HCl (Desyrel) 25 mg PO BID@0900,1400 DANI Stop: 10/10/19 13:59 Last Admin: 09/11/19 09:38 Dose: Not Given Documented by: Trazodone HCl (Desyrel) 50 mg PO HS DANI Stop: 10/10/19 21:59 Last Admin: 09/10/19 21:09 Dose: 50 mg Documented by: Mental Health & Subst Abuse Tx Psychiatrist Name of Psychiatrist: Dr. Ronquillo Psychiatrist's Date of Appointment with Psychiatrist: 09/18/19 Time of Appointment with Psychiatrist: 11am Psychiatric Appointment Comment: [address],[place] Therapist Name of Therapist: denies Hand Engraver Name of Hand Engraver: denies Post Discharge Appointments Primary Care Physician Name Of Family Doctor: Dr. Hernandez Primary [facility] Date of Appointment with PCP: 09/19/19 Time of Appointment with PCP: 11:05 Contact Information Discharge Discharge Address: [address] [place] [id number]
[2019-09-12] MEDS: TRAZODONE HCL 50 MG TAB PO SCH (08:47)
--- NOTE | 2019-09-12 13:32 | Discharge Summary ---
Date of Service September 12, 2019 History of Present Illness Aristides Soto is a 68-year-old male admitted involuntarily for inpatient psychiatric treatment after presenting to the ED for mental health evaluation. He had reportedly called 911 and verbalized paranoia related to hallucinations he had been experiencing. ED documentation suggests the patient had awoken from a nap to experience visual hallucinations, causing him to believe that other people were in his home. It is reported that patient has a diagnosis of Lewy body dementia. He had one ED presentation with similar concerns back in 02/2019 - and was discharged home with care to be provided by his partner. Partner remains involved in his treatment presently. Multiple referrals were placed for geripsych treatment, but none were accepting the patient for admission. This provider received report that the patient has overwhelmed and appearing distressed upon arrival to unit. This provider attempted to meet with the patient to complete psychiatric H&P and help the patient feel more comfortable. He is observed to be standing in the hallway outside of his room. He is pleasant with initial exchange of greetings, wiling to shake this provider's hand. He then requests to know what is going on and when he will be permitted to leave. Pt was informed he has been admitted to the behavioral health unit, and he continues to demonstrate confusion. He requests to know where the other "inductees" are kept, and when asked to further clarify this inquiry - he is unable to do so. Pt requested to speak to his /partner, and then requested to go home. He implies that "Maribell is in on this, but I'm not staying - she can stay if she wants but I'm going home." Pt was informed that we would attempt to reach out to his partner to help ease the transition. He made multiple comments about his roommate "vomiting on the floor over there" - which were not true statements. Pt shares with this provider "I remember you from the last time, and I don't think things ended well, I want to go home." Pt was informed that he would at least be spending the night with us, and was asked if this provider could get him anything to feel more comfortable. He requests his shoes. When informed the laces would need to be removed in order for them to be worn, he states - "What? Why? Are they not my laces? Are you selling shoes or something? I want my shoes!" Pt was not able to provide any productive history - and was permitted to visit with his /partner who arrived on the unit shortly after our initial encounter. Physical Exam Psychiatric Orientation: alert and + guarded Apperance: appropriately dressed, appropriately groomed and appeared stated age Eye Contact: good eye contact Motor Behavior: no abnormal motor movements Speech is clear and spontaneous Affect: + anxious affect and + irritable affect Does not characterize Thought Process: + perseveration and + confabulations; + thought process not linear or logical Thought Content: + delusions; + delusional Suicidal Thoughts: denies suicidal thoughts Homicidal Thoughts: denies homicidal thoughts No outward evidence of response to internal stim Cognition: + recent memory not intact, + remote memory not intact and + attention not intact Insight: + poor insight Judgement: + poor judgement Vital Signs (Past 24 Hours) Last Vital Signs Temp 36.7 C 09/12/19 06:46 Pulse 60 09/12/19 06:47 Resp 18 09/12/19 06:46 BP 107/70 09/12/19 06:47 Pulse Ox 94 09/08/19 15:24 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 He states he has the second most money in the [place] in his account and doesn't want other people to have it. He feels upset about this and expresses a fear that someone is trying to commit his but otherwise denies feeling sad or hopeless. He does not endorse SI/HI or passive thoughts of . He appears unable to understand/recall that he is being discharged to a nursing care facility. ROS is diffusely negative for new complaints including cardiac sx or pain. Transition of Care Transition Of Care Record: was reviewed with the patient Advance Directives Advance Directives Information Provided: Yes Advance Directives: Yes Mental Health Advance Directive: No Advance Directives on File: Yes Living Will: No Power of Blood Bank Coordinator: Yes Power of Blood Bank Coordinator Name: Maribell Joshi Power of Blood Bank Coordinator Advance Directives Reason:: Declines as Mental Health Visit. Risk Factors Assessment Male: Yes : Yes Do You Have Access To A Gun?: No Health Problems: Yes Mental Health Diagnoses: No Substance Use Disorders: No Previous Attempt: No Previous Psychiatric Hospitalization: No Hopelessness: No Smoker: No Protective Factors Assessment : Yes Responsible for Young Children: No Employed: No (Retired) Stable Relationships: Yes Good Rapport with Provider: No Discharge Data Lab Results 09/08/19 09/08/19 09/08/19 03:38 03:38 03:54 WBC 5.51 RBC 4.27 L Hgb 13.8 L Hct 39.7 L MCV 93.0 MCH 32.3 MCHC 34.8 RDW Std Deviation 44.0 RDW Coeff of Jay 12.9 Plt Count 143 MPV 11.3 H Immature Gran % (Auto) 0.5 Neut % (Auto) 64.6 Lymph % (Auto) 25.8 Laporte % (Auto) 7.4 Eos % (Auto) 1.5 Baso % (Auto) 0.2 Immature Gran # (Auto) 0.03 H Neut # (Auto) 3.56 Lymph # (Auto) 1.42 Laporte # (Auto) 0.41 Eos # (Auto) 0.08 Baso # (Auto) 0.01 Sodium Potassium Chloride Carbon Dioxide Anion Gap BUN Creatinine Est Cr Clr Drug Dosing Est GFR ( Amer) Est GFR (Non-Af Amer) BUN/Creatinine Ratio Glucose Calcium Total Bilirubin AST ALT Alkaline Phosphatase Total Protein Albumin Globulin Albumin/Globulin Ratio TSH Urine Color Yellow Urine Appearance Clear Urine pH 5.0 Ur Specific Pitman 1.020 Urine Protein Negative Urine Glucose (UA) Negative Urine Ketones Negative Urine Blood Negative Urine Nitrite Negative Urine Bilirubin Negative Urine Urobilinogen Negative Ur Leukocyte Esterase Negative Salicylates Urine Opiates Screen Neg Ur Methadone, Qual Neg Acetaminophen Urine Barbiturates Neg Ur Phencyclidine (PCP) Neg U Amphetamin/Meth Scrn Neg MDMA (Ecstasy) Screen Neg U Benzodiazepines Scrn Neg Ur Cocaine Metabolite Neg U Marijuana (THC) Screen Neg Ethyl Alcohol mg/dL 09/08/19 09/08/19 09/08/19 03:54 03:54 03:54 WBC RBC Hgb Hct MCV MCH MCHC RDW Std Deviation RDW Coeff of Jay Plt Count MPV Immature Gran % (Auto) Neut % (Auto) Lymph % (Auto) Laporte % (Auto) Eos % (Auto) Baso % (Auto) Immature Gran # (Auto) Neut # (Auto) Lymph # (Auto) Laporte # (Auto) Eos # (Auto) Baso # (Auto) Sodium 142 Potassium 4.0 Chloride 109 H Carbon Dioxide 28 Anion Gap 5.0 BUN 16 Creatinine 1.05 Est Cr Clr Drug Dosing 60.2 Est GFR ( Amer) 85.3 Est GFR (Non-Af Amer) 73.6 BUN/Creatinine Ratio 14.8 Glucose 114 H Calcium 9.1 Total Bilirubin 1.4 H AST 25 ALT 24 Alkaline Phosphatase 61 Total Protein 7.1 Albumin 3.8 Globulin 3.3 Albumin/Globulin Ratio 1.2 TSH 2.600 Urine Color Urine Appearance Urine pH Ur Specific Pitman Urine Protein Urine Glucose (UA) Urine Ketones Urine Blood Urine Nitrite Urine Bilirubin Urine Urobilinogen Ur Leukocyte Esterase Salicylates < 1.7 L Urine Opiates Screen Ur Methadone, Qual Acetaminophen < 2 L Urine Barbiturates Ur Phencyclidine (PCP) U Amphetamin/Meth Scrn MDMA (Ecstasy) Screen U Benzodiazepines Scrn Ur Cocaine Metabolite U Marijuana (THC) Screen Ethyl Alcohol mg/dL < 3.0 Hospital Course (1) Paranoia: 09/08 - Paranoia and reported hallucinations are likely related to underlying Lewy body dementia, rather than a primary psychiatric condition - none the less, they are interfering with safe functioning within the home and patient is not considered safe for discharge without a more formal review of safety planning - Will attempt to gather collateral information to determine if there is a prior psychiatric history or other concerns to suggest his paranoia is better explained as a primary thought discharge - Coordinate care with PCP, Dr. Tiffany Kern, at [facility] -request records. - Encourage activities that will increased patient's comfort - including calming familiar activities, permission to have familiar items - Family meeting with outpatient supports to discuss discharge options - as it is not clear if patient is safe to be living independently - Will offer trazodone 25mg TID scheduled to reduce anxiety; avoid neuroleptics as they are generally avoided in individuals with Lewy body dementia - Will also have trazodone 25mg available prn for acute anxiety/agitation - can adjusted dosing based on tolerance 09/09 -Appears to be related to Lewy body dementia based on collateral information from . We have requested records from [facility] where he sees his PCP and psychiatrist, but have not yet received them. We will attempt to contact his psychiatrist to coordinate care. -We are avoiding a trial of an atypical due to the black box warning and patient's inability to provide informed consent, as well as recent trial of quetiapine which worsened agitation. Continue trazodone for now, no signs of oversedation/side effects. -Family meeting with - explored options for increased supports (Office of Aging, respite care, in home nursing/aides, assisted living or fci placement). She had objections to most of these, but we will continue to explore options, is clearly the current situation is not sustainable, especially given the progressive nature of his illness. 09/10 - Continue trazodone 25mg in the morning and afternoon - will increase bedtime dose to 50mg as patient state he has not been sleeping well (nursing reports 4 hours last evening) - Continue to discuss long-term options with , as patient will eventually require a locked memory unit in order to appropriate supervise and manage his behaviors - Pt did receive an evaluation from [facility] today - though availability is uncertain - Continue to encourage participation in group programming when appropriate 09/11 -Patient continues to demonstrate paranoia and other delusional ideation most likely secondary to his underlying neurocognitive disorder. -Could consider low-dose atypical antipsychotic trial. In this case I would probably favor olanzapine with relatively low risk for EPS but still a potent antipsychotic at low doses. This medication could be started at a very low dose such as 1.25 mg p.o. nightly watching closely for EPS however, due to likely pending discharge at termination of involuntary commitment, I will defer this to consideration of outpatient treatment. If he does demonstrate EPS with atypical antipsychotic treatment, alternatively Nuplazid could be considered. -Low-dose trazodone is a reasonable choice for acute anxiety. Antidepressant trial such as an SSRI could also be considered in the future which may help reduce likelihood of future anxiety and associated paranoia however antidepressant pharmacotherapy can sometimes worsen hallucinations and agitation and will also be deferred at this time to the judgment of his outpatient provider. 09/12 -Patient has tolerated trazodone without problematic sedation however he has refused two of the daytime doses. -As previously noted, if his psychotic symptoms present more of an acute danger or become more persistently distressing, the potential therapeutic benefit of an antipsychotic trial would then likely outweigh the potential risks and can be considered by future providers. Until that time, increasing level of support is primary intervention. (2) Lewy body dementia with behavioral disturbance: 09/08 - Coordinate care with outpatient provider, unclear if patient is working with a neurologist or other specialist - It is likely some consideration will need to be put into placement options as his condition progresses - Patient should be frequently reoriented to person, place, time, event, and intervention to be performed. Pt should be permitted to utilize corrective lenses and assistive hearing devices when appropriate. Permit use of familiar comfort items when appropriate as well. Keep patient awake and active during day, with light on in room. Conversely, dark room should be maintained at night with sleep being encouraged. Engage patient in group participation when appropriate/tolerated - MNPR due to concern for agitation. 09/10 - Will need to clarify outpatient treatment team, as his PCP is reportedly retiring and it is uncertain if he is actively following with a neurologist - Will attempt to gather collateral information in order to coordinate with outpatient team 09/11 -As best as I can tell at the present time patient is felt to be at his recent cognitive and functional baseline. As such, extending his commitment behind the 302 does not appear appropriate if he can be safely discharged to a less restrictive setting. His delusions and hallucinations are likely to be chronic, even with treatment. As his insight and recall are impaired, he would require 24-hour supervision to reduce risk of dangerous behaviors associated with psychosis. -Staff to clarify bed availability with [facility] today for discharge planning -Both outpatient psychiatric follow-up and neurology follow-up recommended for continued treatment 09/12 -Patient does not demonstrate capacity to make informed medical, legal, or financial decisions. He is unable to rationally manipulate information or sufficiently retain new information. Much of his thinking appears to be delusionally based. -pt accepted to [facility] memory care unit where he will have 24h supervision which is expected to improve safety in regards to behaviors associated with delusions/hallucinations (secondary to underlying dementia.) as perviously noted, if he behaviorally decompensates or becomes more distressed with delusional preoccupations, additional treatment should be offered. -due to the unusual nature of his recent circumstances (long standing friendship but new marriage in setting of major neurocognitive disorder and self report of large estate and his concern for the security of his finances) I did make a call to [employer] protective services at [phone] and spoke with Jessie Sen to request they look into his situation and try to ensure he is not the victim of financial abuse as he is a vulnerable person. I emphasized that there was no direct evidence of abuse at time of his hospitalization. Mental Health & Subst Abuse Tx Psychiatrist Name of Psychiatrist: Dr. Ronquillo Psychiatrist's Date of Appointment with Psychiatrist: 09/18/19 Time of Appointment with Psychiatrist: 11am Psychiatric Appointment Comment: [address],[place] Therapist Name of Therapist: denies Wardsperson Name of Wardsperson: denies Post Discharge Appointments Primary Care Physician Name Of Family Doctor: Dr. Hernandez Primary Care Date of Appointment with PCP: 09/19/19 Time of Appointment with PCP: 11:05 Contact Information Discharge Discharge Address: [address] [place] [address] Discharge Plan Discharge Items Patient Disposition: Personal Prison Reason For Visit: PARANOIA Discharge Diagnosis: psychosis secondary to neurocognitive disorder Condition on Discharge: Fair Activity: Resume your previous activity Non-emergency contact: Primary Care Provider and Psychiatrist Call non-emergency contact if: you have any medication questions and your symptoms worsen Follow-up/Referrals: TAB NICHOLE [Primary Care Provider] - Diet: Regular Addtl Attending Provider Instructions: It is recommended that she maintain regular follow-up with your outpatient psychiatrist and neurologist to monitor for progression and for continued treatment. Pending Studies at Discharge: No Stand-Alone Forms: [facility], Smoking Cessation, Suicide Prevention Resources Skilled Items Patient informed of condition?: Yes DNR: No Discharge Level of Care: Other Communicable Disease: No Discharge Prognosis: Other Lines: None Urinary Catheter: No Medications and DC Order Prescriptions: New trazodone 50 mg Tablet 50 mg PO HS Qty: 7 RF: 0 trazodone 50 mg Tablet 25 mg PO BID@0900,1400 Qty: 14 RF: 0 Continued No Known Home Medications RF: 0 Discharge Orders: Discharge Order (Routine); Ordered 09/12/19 Ordered By: Chaz Fisher Admission Data Admit Date/Time: 09/08/19 14:25 Attending Provider: Lacey Gold Admit Provider: Lacey Gold Primary Care Provider: PCP,NO Other Interventions: Discharge Summary Assessment (RN) Last Done: 09/12/19 13:35 PSY Interdisciplinary Discharge Planning Last Done: 09/12/19 13:55 DC Date/Time DO NOT enter until pt leaves facility: 09/12/19 14:10 Coding Level of Care Code 14492 D/C day mgmt > 30 min Diagnoses Paranoia F22 Lewy body dementia with behavioral disturbance G31.83; F02.81 Time Spent (min) 35
[2019-09-12] MEDS ORDERED: DESTROY THIS MEDICATION ONE (15:28)
== END 2019-09-12 14:10 | disposition home or self-care (01) | DRG 885 ==
LOC: ED 03:05 → 3S 14:25

== ENCOUNTER 2020-01-28 09:17 | Inpatient (IN) ==
[2020-01-28] MEDS ORDERED: BACITRACIN OINT 15 GM TUBE EXT ONE (09:49)
[2020-01-28] MEDS ORDERED: SODIUM CHLORIDE 0.9% 1000ML 1,000 ML IV STA (09:49)
--- NOTE | 2020-01-28 09:56 | XRay Report ---
XR chest 1V portable HISTORY: weakness COMPARISON: Chest 01/02/2020. FINDINGS: The lungs are clear. Cardiac silhouette is normal in size. No pleural effusions. No pneumot horax. IMPRESSION: No acute process. ACT 112: Negative or not required by law. Electronically signed by: Rickie Saul M.D. 01/28/2020 9:55 AM
[2020-01-28 10:01] LABS: Basophils # (auto) 0.01 K/uL (0-0.2); Basophils % (auto) 0.1 %; Eosinophils # (auto) 0.01 K/uL (0-0.5); Eosinophils % (auto) 0.1 %; Hematocrit (blood only) 38.8 % (42-52); Hemoglobin 13.2 g/dL (14.0-18.0); Immature Granulocytes # (auto) 0.04 K/uL (0.00-0.02); Immature Granulocytes % (auto) 0.3 %; Lymphocytes # (auto) 1.36 K/uL (1.2-3.4); Lymphocytes % (auto) 11.3 %; Mean Corpuscular Hemoglobin 30.5 pg (25-34); Mean Corpuscular Volume 89.6 fL (80-100); Monocytes # (auto) 1.27 K/uL (0.11-0.59); Monocytes % (auto) 10.5 %; Neutrophils # (auto) 9.36 K/uL (1.4-6.5); Neutrophils % (auto) 77.7 %; Platelet Count 161 K/uL (130-400); RDW Coefficient of Variation 12.7 % (11.5-14.5); Red Blood Count 4.33 M/uL (4.7-6.1); White Blood Count 12.05 K/uL (4.8-10.8)
[2020-01-28 10:17] LABS: Albumin Level 3.8 gm/dl (3.4-5.0); BUN Creatinine Ratio 17.2 (10-20); Blood Urea Nitrogen 15 mg/dl (7-18); Calcium 9.3 mg/dl (8.5-10.1); Carbon Dioxide 29 mmol/L (21-32); Chloride 100 mmol/L (98-107); Creatinine Clr Calc Pharmacy 74.5 ml/min; Est GFR (African American) 103.5; Est GFR (Non-African American) 89.3; Glucose 102 mg/dl (70-99); Magnesium 2.1 mg/dl (1.8-2.4); Sodium 134 mmol/L (136-145)
[2020-01-28] MEDS ORDERED: HYDROmorphone INJ 0.5 MG/0.5 ML SYR IV STA (10:23)
[2020-01-28 10:33] LABS: Alanine Aminotransferase 26 U/L (12-78); Albumin Globulin Ratio 1.2 (0.9-2); Alkaline Phosphatase 89 U/L (45-117); Aspartate Aminotransferase 35 U/L (15-37); Bilirubin,Total 0.5 mg/dl (0.2-1); Globulin 3.1 gm/dl (2.5-4.0); Total Protein 6.9 gm/dl (6.4-8.2); Troponin I < 0.015 ng/ml (0-0.045)
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
[2020-01-28] MEDS ORDERED: LORazepam 0.5 MG/1 ML VIAL IV STA ×2 (10:55→13:36)
[2020-01-28] MEDS ORDERED: HALOPERIDOL LACTATE 5 MG/ML 1 ML VIAL IV STA (10:55)
[2020-01-28] MEDS ORDERED: HALOPERIDOL LACTATE 5 MG/ML 1 ML VIAL IM STA (11:05)
--- NOTE | 2020-01-28 11:53 | CT Scan Report ---
HEAD CT NONCONTRAST CT DOSE: 1228.53 mGy.cm HISTORY: Altered mental status. TECHNIQUE: Multiaxial CT images of the head were performed without the use of intravenous contrast. A utomated exposure control was utilized for this study. A dose lowering technique was utilized adheri ng to the principles of ALARA. Comparison: Head CT 01/02/2020. Findings: The paranasal sinuses and mastoid air cells are clear. The calvarium and skull base are int act. The ventricles and sulci are within normal limits. There is no mass, hematoma, midline shift, or acute infarct. Impression: No acute intracranial abnormality. ACT 112: Negative or not required by law. Electronically signed by: Rickie Saul M.D. 01/28/2020 11:52 AM
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
[2020-01-28] MEDS ORDERED: LORazepam 2 MG/4 ML VIAL ONE (13:37)
[2020-01-28 13:38] LABS: INR 1.1 (0.9-1.1); Prothrombin Time 11.4 Seconds (9.0-12.0)
--- NOTE | 2020-01-28 15:02 | Electrocardiogram Report ---
Test Reason : Blood Pressure : / mmHG Vent. Rate : 080 BPM Atrial Rate : 080 BPM P-R Int : 140 ms QRS Dur : 082 ms QT Int : 342 ms P-R-T Axes : 088 073 089 degrees QTc Int : 394 ms Poor data quality, interpretation may be adversely affected Normal sinus rhythm T wave abnormality, consider anterior ischemia Abnormal ECG When compared with ECG of 02-JAN-2020 04:13, T wave inversion now evident in Anterior leads Confirmed by Jeffery Quispe ([id number]) on 01/28/2020 3:02:18 PM Referred By: REFERRED SELF Confirmed By:Jeffery Quispe
[2020-01-28] MEDS ORDERED: ACETAMINOPHEN 1000 MG/100 ML IV IV ONE (15:20)
[2020-01-28] MEDS ORDERED: ACETAMINOPHEN 1,000 MG/100 ML VIAL IV STA (15:28)
[2020-01-28] MEDS ORDERED: KETOROLAC TROMETHAMINE 15 MG/ML VIAL IV STA (15:28)
[2020-01-28 15:30] LABS: Appearance Urine Clear (Clear); Bilirubin Urine Negative (Negative); Blood Urine Negative (Negative); Color Urine Yellow; Glucose Urine UA Negative (Negative); Ketones Urine 1+ (Negative); Leukocyte Esterase Urine Negative (Negative); Nitrite Urine Negative (Negative); Protein Urine Negative (Negative); Specific Gravity Urine 1.016 (1.000-1.030); Urobilinogen Urine Negative (Negative)
[2020-01-28] MEDS ORDERED: KETOROLAC TROMETHAMINE 15 MG/ML VIAL ONE (15:31)
--- NOTE | 2020-01-28 15:31 | Electrocardiogram Report ---
Test Reason : Blood Pressure : / mmHG Vent. Rate : 099 BPM Atrial Rate : 099 BPM P-R Int : 134 ms QRS Dur : 078 ms QT Int : 360 ms P-R-T Axes : 084 082 124 degrees QTc Int : 462 ms Poor data quality, interpretation may be adversely affected Normal sinus rhythm Nonspecific ST and T wave abnormality Abnormal ECG When compared with ECG of 28-JAN-2020 09:38, Nonspecific T wave abnormality no longer evident in Inferior leads T wave inversion no longer evident in Anterior leads Confirmed by Jeffery Quispe ([id number]) on 01/28/2020 3:30:30 PM Referred By: REFERRED SELF Confirmed By:Jeffery Quispe
[2020-01-28] MEDS ORDERED: ACETAMINOPHEN 325 MG TAB PO PRN (17:12)
[2020-01-28] MEDS ORDERED: diazePAM 5 MG TABLET PO PRN (17:30)
[2020-01-28] MEDS ORDERED: DIPHTHERIA/TETANUS TOX ADSORBED ULTRAFINED 0.5 ML SYR/VIAL IM ONE (17:30)
[2020-01-28] MEDS ORDERED: PNEUMOCOCCAL ADMINISTRATION CHARGE ONE (18:46)
[2020-01-28] MEDS ORDERED: PNEUMOCOCCAL POLYSACCHARIDES 25 MCG/0.5 ML VIAL/SYR IM ONE (18:46)
[2020-01-28] MEDS ORDERED: INFLUENZA ADMINISTRATION CHARGE ONE (18:46)
[2020-01-28] MEDS ORDERED: INFLUENZA VACCINE HIGH DOSE 65+ 0.5 ML SYR IM ONE (18:46)
[2020-01-28 18:51] LABS: Acetaminophen 7 ug/ml (10-30); Salicylate < 1.7 mg/dl (2.8-20)
[2020-01-28] MEDS ORDERED: HYDROmorphone INJ 0.5 MG/0.5 ML SYR IV PRN ×2 (19:26→20:34)
[2020-01-28] MEDS ORDERED: D5W AND NSS 1,000 ML IV SCH (19:45)
[2020-01-28] MEDS ORDERED: TRAZODONE HCL 50 MG TAB PO PRN (21:00)
[2020-01-28] MEDS ORDERED: diazePAM 5 MG TABLET PO SCH (21:00)
[2020-01-28] MEDS ORDERED: DIVALPROEX DELAY RELEASE 500 MG TAB PO SCH (21:00)
[2020-01-28] MEDS: ACETAMINOPHEN 1,000 MG/100 ML VIAL IV SCH (22:49)
[2020-01-29] MEDS: HYDROmorphone INJ 0.5 MG/0.5 ML SYR IV PRN ×6 (00:25→23:17)
[2020-01-29] MEDS: ACETAMINOPHEN 1,000 MG/100 ML VIAL IV SCH (05:27)
[2020-01-29 05:36] LABS: Basophils # (auto) 0.02 K/uL (0-0.2); Basophils % (auto) 0.3 %; Eosinophils # (auto) 0.15 K/uL (0-0.5); Eosinophils % (auto) 2.1 %; Hematocrit (blood only) 36.7 % (42-52); Hemoglobin 12.5 g/dL (14.0-18.0); Immature Granulocytes # (auto) 0.02 K/uL (0.00-0.02); Immature Granulocytes % (auto) 0.3 %; Lymphocytes # (auto) 1.23 K/uL (1.2-3.4); Mean Corpuscular Hgb Conc 34.1 g/dL (32-36); Mean Corpuscular Volume 91.1 fL (80-100); Mean Platelet Volume 10.9 fL (7.4-10.4); Monocytes # (auto) 0.99 K/uL (0.11-0.59); Monocytes % (auto) 13.7 %; Neutrophils # (auto) 4.84 K/uL (1.4-6.5); Neutrophils % (auto) 66.6 %; Platelet Count 133 K/uL (130-400); RDW Coefficient of Variation 12.8 % (11.5-14.5); RDW Standard Deviation 42.6 fL (36.4-46.3); Red Blood Count 4.03 M/uL (4.7-6.1); White Blood Count 7.25 K/uL (4.8-10.8)
[2020-01-29 05:59] LABS: BUN Creatinine Ratio 11.9 (10-20); Calcium 8.6 mg/dl (8.5-10.1); Creatinine Clr Calc Pharmacy 65.4 ml/min; Est GFR (Non-African American) 78.5
--- NOTE | 2020-01-29 12:55 | Hospitalist Progress Note ---
Date of Service January 29, 2020 Assessment & Plan (1) AMS (altered mental status): Pt is 69 y/o M with PMH Lewy Body dementia with behavioral disturbance presented to ER via EMS after patient wandered away from the house around 8:30 PM last night. Patient was found around 8 AM this morning. EMS reports patient with a temp of 91.2F oral and warming blankets applied. Upon ER arrival rectal temp 36.3C. Suspect AMS secondary to underlying dementia. No acute changes noted on CT head. lab work unremarkable on 1: 1 observation due lack of safety for himself /climbing out of bed (2) Lewy body dementia with behavioral disturbance: recently worsening behavioral issues w ith aggressive tendencies. Patient follows with Dr. Gtz psychiatry outpatient. Patient with recurrent difficulties getting placed to memory care facilities. Patient's reports are awaiting bed opening at [facility]. social service consulted (3) Abrasion, foot: (4) Cold injury: Patient with noted cord injury and abrasions to bilateral plantar feet. No signs of infection at this time wound care consutled Last Tdap 2012; Update Tetanus booster today Wound consult (5) Acute electrocardiogram changes: EKG: Sinus rhythm. T wave inversion in anterior lateral leads. Initial troponin negative. Patient currently sedated and unable to voice of any chest pain or shortness of breath Obtain repeat EKG now with improved temperature Trend troponin (6) Subdural hematoma: 01/02/2020 patient had aggressive behavior 911 was called and patient was brought to [facility] ER, there was no documented injury. In ER patient was found to have 3 mm acute subdural hematoma to anterior left frontal and temporal lobes and was transferred to [facility] . Seen by neurosurgery had repeat CT head which showed resolution of subdural hematoma and no surgical intervention needed. CT head on admission no acute intracranial abnormality DVT Prophylaxis -pt not keeping SCD's on Full Code as per discussion with pt's , Maribell Joshi Follows with Dr Vikram Perez for routine care updated over phone Admission and Anticipated Discharge Date Admission Date: January 28, 2020 Subjective very agitated climbing out of bed pulling at tele leads ( discontinued ) IV lines unable to follow any command Review of Systems Review of Systems: Unobtainable due to mental health condition (confused /disoriented ) Physical Exam Constitutional: + ill appearing and + altered mental status (confused /disoriented ) Eyes: + anicteric sclerae Respiratory: normal respiratory effort; no respiratory distress and no cough Cardiovascular: Rate/Rhythm: regular rate and regular rhythm Neurologic: moves all extremities and + focal motor deficit Psychiatric: Orientation: alert; + not oriented x 3 (very confused /disoriented , pulling at clothes , iv lines , ) and + uncooperative Apperance: + disheveled Eye Contact: + poor eye contact Motor Behavior: + psychomotor agitation Speech: + mute Results & Data Results & Data ([facility]) Vital Signs (Past 12 Hours) Vital Signs Temp Pulse Pulse Resp BP Pulse Ox 01/29/20 05:35 36.5 C 88 16 118/68 96 01/29/20 01:07 82 01/29/20 00:57 36.2 C L 81 16 114/65 93 (1) Cold injury Encounter type: initial encounter Qualified Code(s): T69.9XXA - Effect of reduced temperature, unspecified, initial encounter
[2020-01-29] MEDS: OLANZapine 10 MG/2.1 ML SDV IM PRN ×2 (13:13→20:19)
--- NOTE | 2020-01-29 15:07 | Wound Consultation ---
Date of Consultation January 29, 2020 Assessment & Plan (1) Cold injury: (2) Frostbite of both feet: (3) Traumatic wound: Patient traumatic wounds to the bilateral feet and suspected stage 3 frostbite/cold injury. No debridement required today, however I did open a clear fluid-filled blister of the right plantar surface. Topical Xylocaine was applied to the blister. Blister was incised and drained using a scissor and forceps. Clear fluid was drained from the area. Wound base was noted to be erythematous. Patient tolerated the procedure. Wounds will be dressed with Aquacel Ag. Wound culture was obtained today. Will await results to treat. Will obtain bilateral foot x-rays to rule out osteomyelitis. Primary goal is wound healing. I would recommend he offload and remain off his feet if possible. If patient is to resume walking, would recommend orthotics referral for offloading footwear. Thank you for the consult. We will continue to follow along with primary service as needed. Would recommend outpatient follow-up at the wound center as well. History of Present Illness Reason for Consultation: bilateral foot wounds Attending Physician: Marychuy Funes MD History of Present Illness 69-year-old male with history of Lewy body dementia and recent subdural hematoma presents to [facility] after being found wandering from his home with AMS and hypothermia. Patient was noted to have been wandering in his socks, and presented with wounds to the bilateral feet; trauma and/or frostbite. Patient is currently sleeping, and was not disturbed as he has been combative this hospital admission. He is noted to be a poor historian from dementia standpoint as well. He was provided Dilaudid prior to my visit today. He is currently a 1:1 as well. Allergies Allergy/AdvReac Type Severity Reaction Status Date / Time haloperidol [From Haldol] AdvReac Severe Verified 01/29/20 12:59 Home Medications Home Medications Medication Instructions Recorded Confirmed Type diazepam 5 mg PO BID 01/28/20 01/28/20 History diazepam 5 mg PO Q6H PRN 01/28/20 01/28/20 History divalproex 500 mg PO TID 01/28/20 01/28/20 History trazodone 50 mg PO HS PRN 01/28/20 01/28/20 History Patient History Medical History (Updated 01/29/20 @ 15:15 by ROSS Quezada) Lewy body dementia with behavioral disturbance Mental health assessment declined (Inactive) No significant past medical history Subdural hematoma 01/02/2020, 3mm subdural hematoma. Transferred to [facility]. Repeat imaging with resolution. No surgical procedures Surgical History (Updated 01/28/20 @ 13:49 by Gricel Grijalva PA-C) History of cataract surgery Family History (Updated 01/28/20 @ 13:50 by Gricel Grijalva PA-C) Other Coronary heart disease Diabetes Social History (Updated 01/28/20 @ 13:49 by Gricel Grijalva PA-C) Preferred Language: Syriac Communication Ability: Unable Manager System Required: No Beliefs That Will Affect Care: None marital status: Single Current Living Situation: Spouse current occupational status: retired Other Information That Helps Us Care for You: No Feels Safe at Home: Yes Safety Concerns: Feels Safe At This Time Smoking Status: Unknown if ever smoked Hx Alcohol Use: No (unable to respond) Hx Substance Use: No (unable to respond) Review of Systems Review of Systems: Unobtainable due to cognitive status Physical Exam Physical Exam: Temp Pulse Resp BP Pulse Ox 36.5 C 88 16 118/68 96 01/29/20 05:35 01/29/20 05:35 01/29/20 05:35 01/29/20 05:35 01/29/20 05:35 Patient is afebrile. Vital signs stable. See wound nurse notes for wound measurements. Wounds noted on the right plantar surface and left lateral foot. Wound bases are erythematous. No odor present. Small amount of serosanguineous drainage is noted. Periwound is intact. Small 1x1cm clear fluid filled blister noted on the right plantar surface. Bilateral feet are warm to touch with pedal pulses present bilaterally. Constitutional: no acute distress Respiratory: no respiratory distress Psychiatric: Patient sleeping Results & Data Vital Signs (Past 12 Hours) Vital Signs Temp Pulse Resp BP Pulse Ox 01/29/20 05:35 36.5 C 88 16 118/68 96 PG Care Time/CCT Total # of Minutes Spent Total Time Spent with Patient: Total time spent is greater than 50% in coordination of care (as documented) at patient's floor/unit and/or counseling patient: Coding Level of Care Code 40095 Initial Inpt Care Lvl 3 Diagnoses Cold injury T69.9XXA Encounter type: initial encounter Frostbite of both feet T33.821A; T33.822A Encounter type: initial encounter Traumatic wound Comment I&D of blister of right plantar surface. (1) Cold injury Encounter type: initial encounter Qualified Code(s): T69.9XXA - Effect of reduced temperature, unspecified, initial encounter (2) Frostbite of both feet Encounter type: initial encounter Qualified Code(s): T33.821A - Superficial frostbite of right foot, initial encounter; T33.822A - Superficial frostbite of left foot, initial encounter
--- NOTE | 2020-01-29 15:50 | XRay Report ---
RIGHT FOOT 3 VIEWS CLINICAL HISTORY: Right foot wounds. FINDINGS: 3 views of the right foot are obtained. No prior studies are available for comparison at th e time of dictation. The skeletal structures are well mineralized. No fracture is seen. There is no b chuy erosion or periostitis. Mild osteoarthritic change is noted the first metatarsophalangeal joint. The joint spaces are otherwise preserved. The overlying soft tissues are normal as imaged. No radiode nse foreign body is seen. IMPRESSION: No acute bony abnormality is identified. Electronically signed by: Daniel Hayes M.D. 01/29/2020 3:49 PM
--- NOTE | 2020-01-29 15:51 | XRay Report ---
LEFT FOOT 3 VIEWS CLINICAL HISTORY: Foot wounds. FINDINGS: 3 views of the left foot are obtained. No prior studies are available for comparison at the time of dictation. The skeletal structures are well mineralized. No fracture is seen. There is no rae ny erosion or periostitis. The joint spaces of the foot are preserved. Dermal calcifications are note d in the toes. Some of these may be related to the toenails. The overlying soft tissues are normal as imaged. IMPRESSION: 1. No acute bony abnormality is identified. 2. Dermal calcifications are noted in the toes. Electronically signed by: Daniel Hayes M.D. 01/29/2020 3:50 PM
[2020-01-29] MEDS ORDERED: QUETIAPINE FUMARATE 25 MG TABLET PO ONE (16:05)
--- NOTE | 2020-01-29 17:33 | Electrocardiogram Report ---
Test Reason : Blood Pressure : / mmHG Vent. Rate : 076 BPM Atrial Rate : 076 BPM P-R Int : 132 ms QRS Dur : 084 ms QT Int : 360 ms P-R-T Axes : 078 067 029 degrees QTc Int : 405 ms Normal sinus rhythm Nonspecific ST abnormality Abnormal ECG When compared with ECG of 28-JAN-2020 13:43, QT has shortened Confirmed by Jeffery Quispe ([id number]) on 01/29/2020 5:33:04 PM Referred By: REFERRED SELF Confirmed By:Jeffery Quispe
[2020-01-29] MEDS ORDERED: OLANZapine 10 MG/2.1 ML SDV IM ONE (18:00)
[2020-01-29] MEDS ORDERED: HYDROmorphone INJ 0.5 MG/0.5 ML SYR IM STA (20:43)
[2020-01-29] MEDS ORDERED: HYDROmorphone INJ 0.5 MG/0.5 ML SYR IV STA (20:48)
[2020-01-29] MEDS: TRAZODONE HCL 100 MG TAB PO SCH (21:23)
[2020-01-30 00:49] LABS: Amphetamines+Metham, Urine Neg (Neg); Barbiturates, Urine Neg (Neg); Benzodiazepine, Urine Pos (Neg); Cocaine, Urine Neg (Neg); MDMA (Ecstacy), Urine Neg (Neg); Methadone, Urine Neg (Neg); Opiate, Urine Pos (Neg); Phencyclidine, Urine Neg (Neg)
[2020-01-30] MEDS: HYDROmorphone INJ 0.5 MG/0.5 ML SYR IV PRN ×4 (03:18→18:25)
[2020-01-30] MEDS: OLANZapine 10 MG/2.1 ML SDV IM PRN ×2 (04:35→18:25)
[2020-01-30] MEDS ORDERED: HYDROmorphone INJ 0.5 MG/0.5 ML SYR IV STA (04:39)
[2020-01-30] MEDS: TRAZODONE HCL 50 MG TAB PO SCH (11:50)
--- NOTE | 2020-01-30 18:12 | Hospitalist Progress Note ---
Date of Service January 30, 2020 Assessment & Plan (1) AMS (altered mental status): Pt is 69 y/o M with PMH Lewy Body dementia with behavioral disturbance presented to ER via EMS after patient wandered away from the house around 8:30 PM last night. Patient was found around 8 AM this morning. EMS reports patient with a temp of 91.2F oral and warming blankets applied. Upon ER arrival rectal temp 36.3C. AMS secondary to underlying dementia. No acute changes noted on CT head. cont 1:1 observation for pt's safety (2) Lewy body dementia with behavioral disturbance: 01/02/2020 had small subdural seen at [facility] there had aggressive tendencies a nd had med changes including discontinuing trazodone, starting Depakote and also started on Valium which was tapered upon discharge. Since returning home reports worsening dementia and aggressive tendencies. Patient follows with Dr. Gtz psychiatry outpatient. pt has been refusing PO meds started on IV Depakote 500 mg BID -will increase the dose to TID if behavioral symptoms not improved Psych consult requested to adjust dose Patient with recurrent difficulties getting placed to memory care facilities. Patient's reports are awaiting bed opening at [facility]. (3) Abrasion, foot: (4) Cold injury: Patient with noted cord injury and abrasions to bilateral plantar feet. No signs of infection at this time Xray of foot : shows no fracture Last Tdap 2012; Update Tetanus booster today Wound consult (5) Acute electrocardiogram changes: possible due to hypothermia pt was wandering through out the night in cold on bare foot EKG: Sinus rhythm. T wave inversion in anterior lateral leads. Initial troponin negative. Patient currently sedated and unable to voice of any chest pain or shortness of breath Obtain repeat EKG now with improved temperature D/c tele (6) Subdural hematoma: 01/02/2020 patient had aggressive behavior 911 was called and patient was brought to [facility] ER, there was no documented injury. In ER patient was found to have 3 mm acute subdural hematoma to anterior left frontal and temporal lobes and was transferred to [facility]. Seen by neurosurgery had repeat CT head which showed resolution of subdural hematoma and no surgical intervention needed. CT head no acute intracranial abnormality DVT Prophylaxis -SCDs-pt not keeping them on Full Code as per discussion with pt's , Maribell Joshi Follows with Dr Vikram Perez for routine care Admission and Anticipated Discharge Date Admission Date: January 28, 2020 Subjective pt remains delirous , trying to get out of bed needs constant supervision for safety talking to himself unable to follow instructions not oriented to place or person baseline advanced dementia with severe behavioral disturbances Physical Exam Constitutional: + ill appearing and + altered mental status (confused /disoriented ) Eyes: + anicteric sclerae Respiratory: normal respiratory effort; no respiratory distress and no cough Cardiovascular: Rate/Rhythm: regular rate and regular rhythm Neurologic: moves all extremities and + focal motor deficit Psychiatric: Orientation: alert; + not oriented x 3 (very confused /disoriented , pulling at clothes , iv lines , ) and + uncooperative Apperance: + disheveled Eye Contact: + poor eye contact Motor Behavior: + psychomotor agitation Speech: + mute Results & Data Results & Data ([facility]) Vital Signs (Past 12 Hours) Vital Signs Temp Pulse Resp BP BP Pulse Ox 01/30/20 15:04 36.5 C 106 H 20 155/79 H 97 01/30/20 07:52 36.9 C 87 21 168/53 H 97 (1) Cold injury Encounter type: initial encounter Qualified Code(s): T69.9XXA - Effect of reduced temperature, unspecified, initial encounter
[2020-01-30] MEDS: TRAZODONE HCL 100 MG TAB PO SCH (20:26)
[2020-01-30] MEDS: VALPROATE SOD 500 MG in DEXTROSE 5% 50 ML IV SCH (20:58)
[2020-01-30] MEDS ORDERED: VALPROATE SOD 250 MG in DEXTROSE 5% 50 ML IV SCH (21:00)
[2020-01-30] MEDS: QUETIAPINE FUMARATE 25 MG TABLET PO PRN (22:25)
[2020-01-31] MEDS: OLANZapine 10 MG/2.1 ML SDV IM PRN ×2 (00:40→20:24)
[2020-01-31] MEDS: HYDROmorphone INJ 0.5 MG/0.5 ML SYR IV PRN ×5 (03:23→18:38)
[2020-01-31] MEDS ORDERED: HYDROmorphone INJ 0.5 MG/0.5 ML SYR IV STA (04:08)
[2020-01-31] MEDS: VALPROATE SOD 500 MG in DEXTROSE 5% 50 ML IV SCH ×2 (07:59→18:33)
[2020-01-31] MEDS: TRAZODONE HCL 50 MG TAB PO SCH (07:59)
--- NOTE | 2020-01-31 12:08 | Psychiatric Consultation ---
Date of Consultation January 31, 2020 Impression / Recommendations Impression 69 yo male with a history of psychosis related to lewy body dementia, recent rx of Valium for subdural could have contributed to AMS. Certainly is at risk for seizure, for which post ictal state could also result in mental status change. Currently sedated following period of agitation due to pain/frostbite. plan: note that although behaviors leading up to medical hospitalization are clearly inability to care to self, most likely due to dementia and will not fall under [place] mental health commitment law. Will attempt to reassess mental status when more awake. Depakote level low, ammonia normal, would defer to medical/neurology if any adjustments or EEG needed given hx of subdural given t 1/2 of Valium in patient >65, puts at risk for falls and could build up in system and contribute to confusion and AMS, though would also worry about it being stopped abruptly given risk of withdrawal. I'm not aware of the indication so defer to medical. BP and pulse elevations thus far likely due to pain/agitation but consider withdrawal if persists. He has gotten some prn Ativan. will monitor use of prn Zyprexa, 2.5 mg may be low moving forward but do not want to recommend increase when patient on other agents that can case sedation. Psych History Identifying Data 69 yo male with hx of lewy body dementia, subdural hematoma dx [facility] earlier this month. Presented to ED after wandering from his home in [place]. Chief Complaint AMS/inability to care for self, hx of psych admission 09/02 History of Present Illness By time patient arrived in ED, confused, frostbite, period of agitation/restraint due to pain and/or AMS following exposure. Reportedly family does not feel can return home. Previous 302 was for inability to care for self, though primary diagnosis remained lewy body demenita. Received Dilaudid, Haldol, Ativan and is now quite sedated. At baseline meds are intermittent prn trazadone, Depakote 500 Tid, and since the beginning of January Valium 5 mg BID plus prn. Per the PDMP 120 tabs were filled on 01/25 at [facility]. Past Psychiatric History Previous Psych History: behavioral change/dunbar due to Lewy Body Dementia, monitored by Dr. Ronquillo Previous Psych Admissions: Aug 2019, 302'd for reacting to dunbar due to dementia History of Previous Suicide Attempt: No Allergies Allergy/AdvReac Type Severity Reaction Status Date / Time haloperidol [From Haldol] AdvReac Severe Verified 01/29/20 12:59 Home Medications Home Medications Medication Instructions Recorded Confirmed Type diazepam 5 mg PO BID 01/28/20 01/28/20 History diazepam 5 mg PO Q6H PRN 01/28/20 01/28/20 History divalproex 500 mg PO TID 01/28/20 01/28/20 History trazodone 50 mg PO HS PRN 01/28/20 01/28/20 History Personal History Beliefs That Will Affect Care: None Patient History Medical History Lewy body dementia with behavioral disturbance Mental health assessment declined (Inactive) No significant past medical history Subdural hematoma 01/02/2020, 3mm subdural hematoma. Transfer[place] [facility] Repeat imaging with resolution. No surgical procedures Surgical History History of cataract surgery Family History Other Coronary heart disease Diabetes Social History Preferred Language: Turkmen Communication Ability: Unable Medical Nurse Required: No Beliefs That Will Affect Care: None marital status: Single Current Living Situation: Spouse current occupational status: retired Other Information That Helps Us Care for You: No Feels Safe at Home: Yes Safety Concerns: Feels Safe At This Time Smoking Status: Unknown if ever smoked Hx Alcohol Use: No (unable to respond) Hx Substance Use: No (unable to respond) Physical Exam Mental Examination: he is currently sedated, unable to interview Vital Signs (Past 24 Hours): Last Vital Signs Temp 36.5 C 01/30/20 15:04 Pulse 106 H 01/30/20 15:04 Resp 20 01/30/20 15:04 BP 155/79 H 01/30/20 15:04 Pulse Ox 97 01/30/20 15:04 Review of Systems Unobtainable due to cognitive status Results & Data ([facility]) Medications Administered Hydromorphone HCl (Dilaudid) 0.5 mg IV Q3H PRN PRN Reason: Pain Stop: 02/12/20 23:11 Last Admin: 01/31/20 11:49 Dose: 0.5 mg Documented by: [id number] Admin: 01/31/20 07:55 Dose: 0.5 mg Documented by: [id number] Admin: 01/31/20 03:23 Dose: 0.5 mg Documented by: [id number] Admin: 01/30/20 18:25 Dose: 0.5 mg Documented by: [id number] Admin: 01/30/20 15:25 Dose: 0.5 mg Documented by: [id number] Admin: 01/30/20 08:12 Dose: 0.5 mg Documented by: [id number] Admin: 01/30/20 03:18 Dose: 0.5 mg Documented by: [id number] Admin: 01/29/20 23:17 Dose: 0.5 mg Documented by: [id number] Valproic Acid 500 mg/ Dextrose 55 mls @ 55 mls/hr IV Q12H DANI Stop: 02/29/20 20:59 Last Infusion: 01/31/20 09:10 Dose: 0 mls/hr Documented by: [id number] Admin: 01/31/20 07:59 Dose: 55 mls/hr Documented by: [id number] Infusion: 01/30/20 22:00 Dose: 0 mls/hr Documented by: [id number] Admin: 01/30/20 20:58 Dose: 55 mls/hr Documented by: [id number] Olanzapine (Zyprexa) 2.5 mg IM Q6H PRN PRN Reason: severe agitation Stop: 02/27/20 21:29 Last Admin: 01/31/20 00:40 Dose: 2.5 mg Documented by: [id number] Admin: 01/30/20 18:25 Dose: 2.5 mg Documented by: [id number] Admin: 01/30/20 04:35 Dose: 2.5 mg Documented by: [id number] Admin: 01/29/20 20:19 Dose: 2.5 mg Documented by: [id number] Admin: 01/29/20 13:13 Dose: 2.5 mg Documented by: [id number] Quetiapine Fumarate (Seroquel) 25 mg PO Q8 PRN PRN Reason: Agitation Stop: 02/29/20 21:59 Last Admin: 01/30/20 22:25 Dose: 25 mg Documented by: [id number] Trazodone HCl (Desyrel) 50 mg PO DAILY DANI Stop: 02/29/20 08:59 Last Admin: 01/31/20 07:59 Dose: 50 mg Documented by: [id number] Admin: 01/30/20 11:50 Dose: Not Given Documented by: [id number] Trazodone HCl (Desyrel) 100 mg PO HS DANI Stop: 02/28/20 20:59 Last Admin: 01/30/20 20:26 Dose: 100 mg Documented by: [id number] Admin: 01/29/20 21:23 Dose: Not Given Documented by: [id number] Coding Level of Care Code 85011 [facility] Intl Hosp Care Lvl 2
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
[2020-01-31 20:15] LABS: 7-Aminoclonaz, Confirm NEGATIVE ng/mL (<25); Codeine Urine NEGATIVE ng/mL (<50); Hydro-Alp Ur, GC/MS NEGATIVE ng/mL (<25); Hydrocodone Urine NEGATIVE ng/mL (<50); Hydromor Urine 582 ng/mL (<50); Hydroxyethylflurazepam, Conf NEGATIVE ng/mL (<50); Hydroxymidazolam Ur, GC/MS NEGATIVE ng/mL (<50); Hydroxytriazolam NEGATIVE ng/mL (<50); Lorazepam, Ur GC/MS 299 ng/mL (<50); Morphine Urine NEGATIVE ng/mL (<50); Nordiazepam, Confirm 119 ng/mL (<50); Norhydrocodone Conf Ur NEGATIVE ng/mL (<50); Noroxycodone Urine NEGATIVE ng/mL (<50); Oxazepam Ur, GC/MS 1160 ng/mL (<50); Oxycodone Urine NEGATIVE ng/mL (<50); Oxymorph Urine NEGATIVE ng/mL (<50); Temazepam, Confirm 640 ng/mL (<50)
[2020-01-31] MEDS: TRAZODONE HCL 100 MG TAB PO SCH (21:10)
[2020-01-31] MEDS: QUETIAPINE FUMARATE 25 MG TABLET PO PRN (21:10)
[2020-02-01] MEDS: HYDROmorphone INJ 0.5 MG/0.5 ML SYR IV PRN ×5 (01:26→20:21)
[2020-02-01] MEDS: VALPROATE SOD 500 MG in DEXTROSE 5% 50 ML IV SCH ×3 (01:30→20:24)
[2020-02-01] MEDS: TRAZODONE HCL 50 MG TAB PO SCH (09:14)
--- NOTE | 2020-02-01 10:52 | Progress Note ---
Date of Service February 01, 2020 Assessment & Plan Admission and Anticipated Discharge Date Admission Date: January 28, 2020 Subjective Patient remains sedated, progress discussed with liaison and floor nurse. He was up and ate a bit before falling back to sleep, may be appropriate to try out of restraints soon, not aggressive, tugs at jenkins at times. Primary consult team to retry MS assessment to more formally complete consult tomorrow. Results & Data ([facility]) Vital Signs (Past 12 Hours) Vital Signs Temp Pulse Pulse Resp BP Pulse Ox 02/01/20 06:22 73 127/65 02/01/20 04:10 36.5 C 93 H 20 106/45 L 96
[2020-02-01] MEDS: OLANZapine 10 MG/2.1 ML SDV IM PRN (17:08)
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
[2020-02-01] MEDS: TRAZODONE HCL 100 MG TAB PO SCH (20:28)
[2020-02-02] MEDS: HYDROmorphone INJ 0.5 MG/0.5 ML SYR IV PRN ×4 (01:00→21:38)
[2020-02-02] MEDS: OLANZapine 10 MG/2.1 ML SDV IM PRN ×2 (01:02→16:50)
[2020-02-02] MEDS ORDERED: OLANZapine 10 MG/2.1 ML SDV IM STA (02:55)
[2020-02-02] MEDS ORDERED: HYDROmorphone INJ 0.5 MG/0.5 ML SYR IV STA (03:05)
[2020-02-02] MEDS: VALPROATE SOD 500 MG in DEXTROSE 5% 50 ML IV SCH ×2 (07:51→20:15)
[2020-02-02] MEDS ORDERED: LACTULOSE SYRUP 30 GM/45 ML UDP PO ONE (08:00)
[2020-02-02] MEDS: TRAZODONE HCL 50 MG TAB PO SCH (08:46)
--- NOTE | 2020-02-02 11:02 | Psychiatric Progress Note ---
Date of Service February 02, 2020 Impression / Recommendations Impression 69-year-old male with a history of behavioral disturbance related to known history of Lewy Body Dementia. Pt was recently prescribed of Valium for subdural hematoma, which may have contributed to AMS. Certainly is at risk for seizure, for which post ictal state could also result in mental status change. Pt remains sedated following period of agitation due to pain/frostbite. Primary recommendation for management of behavioral disturbances in the setting of dementia/delirium includes: frequent reorientation to person, place, time, event, and intervention to be performed. Pt should be permitted to utilize corrective lenses and assistive hearing devices when appropriate. Permit use of familiar comfort items when appropriate as well. Keep patient awake and active during the day, with light on in room. Conversely, dark room should be maintained at night with sleep being encouraged. Use of prn medications should be limited to behavioral concerns that threaten the safety of the patient or staff, in order to prevent worsening of confusion and excessive sedation. (1) Lewy body dementia with behavioral disturbance: 01/30 - 01/31 note that although behaviors leading up to medical hospitalization are clearly inability to care to self, most likely due to dementia and will not fall under [place] mental health commitment law. Will attempt to reassess mental status when more awake. Depakote level low, ammonia normal, would defer to medical/neurology if any adjustments or EEG needed given hx of subdural given t 1/2 of Valium in patient >65, puts at risk for falls and could build up in system and contribute to confusion and AMS, though would also worry about it being stopped abruptly given risk of withdrawal. I'm not aware of the indication so defer to medical. BP and pulse elevations thus far likely due to pain/agitation but consider withdrawal if persists. He has gotten some prn Ativan. will monitor use of prn Zyprexa, 2.5 mg may be low moving forward but do not want to recommend increase when patient on other agents that can case sedation. 02/01 - Patient's behavioral disturbance continues to be related to a primary neurological condition, as patient has a known diagnosis of Lewy Body dementia. Pt does not meet criteria for mental health commitment as his presentation is best explained by a known medical condition and not by a primary psychiatric disorder. - Agree with recommendations as above - limiting Valium and other agents which may contribute to AMS. Can utilize olanzapine for acute behavioral disturbance which poses threat to safety of patient or staff, but recommend prioritizing behavioral strategies for management of dementia-related behaviors. - Recommend coordination of care with patient's outpatient neurologist regarding continued treatment. Agree with above, defer adjustments of Depakote to neurology/primary team as patient's diagnosis is a primary neurological condition. Interval History Identifying Information 69-year-old male admitted medically on 01/28/2020 when he presented to ED after wandering from his home in [place]. Pt has a documented history of Lewy Body Dementia, with reported subdural hematoma diagnosis with treatment at [facility] earlier this month. Psychiatric consultation initiated on 01/31/2020 for "delirium/paranoia." Pt seen for follow-up visit. Review of Systems Notes Pt unable to participate in full ROS at time of encounter. Although he appears mildly restless, he did not verbalize any physical complaints or appear to be in acute pain at time of assessment. Subjective Subjective Patient's case was reviewed and discussed during morning report with supervising psychiatrist and psychiatric nurse liaison. Pt seen the past two days by weekend rounding psychiatrist - patient is seen today to follow-up on recommendations. Pt is observed to be laying in bed, alert, but not responding to questions asked by this provider. He is wearing soft mitts, and appears a bit restless, but is not acute agitated or attempting to pull at IV/catheter. Pt does not respond to questions regarding orientation to person, place, time, and event. [employer] states his present behavior has been ongoing for the past 15 minutes, no reports of acute agitation from earlier in morning shift. Physical Exam Psychiatric Orientation: alert; + not oriented x 3 Apperance: + disheveled (long shaffer hair, appearing unkempt); + inappropriately dressed (not wearing a shirt) Eye Contact: + poor eye contact Motor Behavior: + psychomotor agitation (appearing restless, moving arms and legs - not pulling at IV/catheter); + abnormal motor movements Pt wearing soft mitts, observed to be laying in bed Speech: + abnormal rate/rhythm/volume of speech (does not offer response to questions asked during visit ) Insight: + impaired insight Judgement: + impaired judgement Vital Signs (Past 24 Hours) Last Vital Signs Temp 37 C 02/01/20 23:04 Pulse 69 02/02/20 07:53 Resp 18 02/02/20 07:53 BP 159/73 H 02/02/20 07:53 Pulse Ox 97 02/02/20 07:53 Results & Data ([facility]) Laboratory Results Laboratory Results - last 24 hr 02/01/20 11:03 Valproic Acid 90 Current Inpatient Medications Current Inpatient Medications: Current Inpatient Medications Hydromorphone HCl (Dilaudid) 0.5 mg IV Q3H PRN PRN Reason: Pain Stop: 02/12/20 23:11 Last Admin: 02/02/20 09:56 Dose: 0.5 mg Documented by: Valproic Acid 500 mg/ Dextrose 55 mls @ 55 mls/hr IV Q12 DANI Stop: 03/02/20 20:59 Last Infusion: 02/02/20 08:54 Dose: Infused Documented by: Olanzapine (Zyprexa) 2.5 mg IM Q6H PRN PRN Reason: severe agitation Stop: 02/27/20 21:29 Last Admin: 02/02/20 01:02 Dose: 2.5 mg Documented by: Quetiapine Fumarate (Seroquel) 25 mg PO Q8 PRN PRN Reason: Agitation Stop: 02/29/20 21:59 Last Admin: 01/31/20 21:10 Dose: 25 mg Documented by: Trazodone HCl (Desyrel) 50 mg PO DAILY DANI Stop: 02/29/20 08:59 Last Admin: 02/02/20 08:46 Dose: 50 mg Documented by: Trazodone HCl (Desyrel) 100 mg PO HS DANI Stop: 02/28/20 20:59 Last Admin: 02/01/20 20:28 Dose: 100 mg Documented by:
[2020-02-02] MEDS ORDERED: LACTATED RINGER'S 250 ML IV ONE (14:45)
[2020-02-02] MEDS: TRAZODONE HCL 100 MG TAB PO SCH (20:08)
[2020-02-03] MEDS: HYDROmorphone INJ 0.5 MG/0.5 ML SYR IV PRN ×3 (00:55→08:34)
[2020-02-03] MEDS ORDERED: SODIUM CHLORIDE 0.9% 1000ML 1,000 ML IV SCH (07:00)
[2020-02-03] MEDS: VALPROATE SOD 500 MG in DEXTROSE 5% 50 ML IV SCH (08:33)
[2020-02-03 09:51] LABS: BUN Creatinine Ratio 13.4 (10-20); Calcium 9.4 mg/dl (8.5-10.1); Creatinine Clr Calc Pharmacy 72.8 ml/min; Est GFR (African American) 102.5; Est GFR (Non-African American) 88.5; Potassium 4.1 mmol/L (3.5-5.1)
[2020-02-03] MEDS: TRAZODONE HCL 50 MG TAB PO SCH (10:31)
[2020-02-03] MEDS: QUETIAPINE FUMARATE 25 MG TABLET PO PRN ×2 (13:31→23:40)
[2020-02-03] MEDS: OLANZapine 10 MG/2.1 ML SDV IM PRN ×2 (14:17→22:28)
[2020-02-03] MEDS ORDERED: OLANZapine 10 MG/2.1 ML SDV IM STA (15:34)
[2020-02-03] MEDS ORDERED: OXYCODONE HCL IR 5 MG TAB (IMMEDIATE RELEASE) ONE (17:59)
[2020-02-03] MEDS ORDERED: MoRPHine SULFATE 5 MG/0.25 ML UDP PO ONE (18:15)
[2020-02-03] MEDS: DIVALPROEX SODIUM SPRINKLE 125 MG CAP PO SCH ×2 (18:34→23:25)
[2020-02-03] MEDS: TRAZODONE HCL 100 MG TAB PO SCH (20:34)
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
[2020-02-03] MEDS: MoRPHine SULFATE 5 MG/0.25 ML UDP PO PRN (23:23)
[2020-02-03] MEDS ORDERED: HYDROmorphone INJ 0.5 MG/0.5 ML SYR IM STA (23:58)
[2020-02-04] MEDS ORDERED: OLANZapine 10 MG/2.1 ML SDV IM STA ×2 (01:11→11:13)
[2020-02-04] MEDS ORDERED: HYDROmorphone INJ 0.5 MG/0.5 ML SYR IM STA (01:11)
[2020-02-04] MEDS: DIVALPROEX SODIUM SPRINKLE 125 MG CAP PO SCH ×3 (07:59→20:59)
[2020-02-04] MEDS: TRAZODONE HCL 50 MG TAB PO SCH (07:59)
[2020-02-04] MEDS: MoRPHine SULFATE 5 MG/0.25 ML UDP PO PRN (10:18)
[2020-02-04] MEDS: OLANZapine 10 MG/2.1 ML SDV IM PRN (10:32)
[2020-02-04] MEDS: QUETIAPINE FUMARATE 25 MG TABLET PO PRN (13:09)
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
[2020-02-04] MEDS: TRAZODONE HCL 100 MG TAB PO SCH (20:58)
[2020-02-05] MEDS: OLANZapine 10 MG/2.1 ML SDV IM PRN (01:30)
[2020-02-05] MEDS: QUETIAPINE FUMARATE 25 MG TABLET PO PRN ×2 (01:42→01:53)
[2020-02-05] MEDS: MoRPHine SULFATE 5 MG/0.25 ML UDP PO PRN (02:28)
[2020-02-05] MEDS: DIVALPROEX SODIUM SPRINKLE 125 MG CAP PO SCH ×3 (07:33→22:04)
[2020-02-05] MEDS: TRAZODONE HCL 50 MG TAB PO SCH (07:34)
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
[2020-02-05 19:46] LABS: Basophils # (auto) 0.02 K/uL (0-0.2); Basophils % (auto) 0.2 %; Eosinophils # (auto) 0.07 K/uL (0-0.5); Eosinophils % (auto) 0.7 %; Hematocrit (blood only) 39.4 % (42-52); Hemoglobin 13.6 g/dL (14.0-18.0); Immature Granulocytes # (auto) 0.02 K/uL (0.00-0.02); Immature Granulocytes % (auto) 0.2 %; Lymphocytes # (auto) 1.05 K/uL (1.2-3.4); Lymphocytes % (auto) 11.1 %; Mean Corpuscular Hemoglobin 31.5 pg (25-34); Mean Corpuscular Hgb Conc 34.5 g/dL (32-36); Mean Corpuscular Volume 91.2 fL (80-100); Mean Platelet Volume 10.2 fL (7.4-10.4); Monocytes # (auto) 1.01 K/uL (0.11-0.59); Monocytes % (auto) 10.6 %; Neutrophils # (auto) 7.33 K/uL (1.4-6.5); Neutrophils % (auto) 77.2 %; Platelet Count 198 K/uL (130-400); RDW Coefficient of Variation 12.5 % (11.5-14.5); RDW Standard Deviation 41.9 fL (36.4-46.3); Red Blood Count 4.32 M/uL (4.7-6.1)
[2020-02-05 20:05] LABS: Albumin Level 3.4 gm/dl (3.4-5.0); BUN Creatinine Ratio 19.4 (10-20); Calcium 9.7 mg/dl (8.5-10.1); Creatinine Clr Calc Pharmacy 62.9 ml/min; Est GFR (African American) 86.7; Est GFR (Non-African American) 74.8; Potassium 3.6 mmol/L (3.5-5.1)
[2020-02-05 20:15] LABS: Albumin Globulin Ratio 0.8 (0.9-2); Bilirubin,Total 0.6 mg/dl (0.2-1); Globulin 4.5 gm/dl (2.5-4.0); Thyroid Stimulating Hormone 1.59 uIu/ml (0.300-4.500); Total Protein 7.9 gm/dl (6.4-8.2)
[2020-02-05] MEDS ORDERED: LACTATED RINGER'S 1,000 ML IV ONE (21:11)
[2020-02-05] MEDS: TRAZODONE HCL 100 MG TAB PO SCH (22:04)
[2020-02-06] MEDS: TRAZODONE HCL 50 MG TAB PO SCH (10:14)
[2020-02-06] MEDS: DIVALPROEX SODIUM SPRINKLE 125 MG CAP PO SCH ×3 (15:00→22:16)
--- NOTE | 2020-02-06 15:20 | Electrocardiogram Report ---
Test Reason : Blood Pressure : / mmHG Vent. Rate : 079 BPM Atrial Rate : 079 BPM P-R Int : 124 ms QRS Dur : 080 ms QT Int : 368 ms P-R-T Axes : 080 079 -88 degrees QTc Int : 421 ms Normal sinus rhythm with sinus arrhythmia T wave abnormality, consider inferior ischemia T wave abnormality, consider anterolateral ischemia Abnormal ECG When compared with ECG of 29-JAN-2020 07:08, T wave inversion now evident in Anterolateral leads Confirmed by Rolan Hodge ([id number]) on 02/06/2020 3:20:10 PM Referred By: REFERRED SELF Confirmed By:Matt Hodge
[2020-02-06 16:28] LABS: Appearance Urine Clear (Clear); Bacteria Urine Automated Negative (Negative); Blood Urine Negative (Negative); Color Urine Dark Yellow; Glucose Urine UA Negative (Negative); Ketones Urine 1+ (Negative); Leukocyte Esterase Urine Trace (Negative); Nitrite Urine Negative (Negative); Protein Urine Trace (Negative); RBC Urine Automated 0-4 /hpf (0-4); Urobilinogen Urine Negative (Negative); pH Urine 6.5 (4.5-7.5)
[2020-02-06 16:36] LABS: Bilirubin Urine Negative (Negative); Ictotest Urine Negative (Negative)
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
[2020-02-06] MEDS: TRAZODONE HCL 100 MG TAB PO SCH (22:16)
[2020-02-07] MEDS: DIVALPROEX SODIUM SPRINKLE 125 MG CAP PO SCH ×3 (09:05→20:55)
[2020-02-07] MEDS: TRAZODONE HCL 50 MG TAB PO SCH (09:06)
--- NOTE | 2020-02-07 10:20 | Urology Progress Note ---
Date of Service February 07, 2020 Assessment & Plan (1) Urinary retention: For the time being, I recommend continued CIC - sounds to be better tolerated than an indwelling catheter - start tamsulosin 0.4mg qHS (1st dose now) - suspect BPH is some element of his trouble based solely upon age, but his other issues are also very likely contributing - we will arrange a telemedicine visit for early next week to further the discussion of nursing home management Subjective consult placed this morning for urinary retention - chart review reveals a multitude of problems, all of which likely contribute to his urinary issues and likewise may complicate his urinary management - overall, I think it sounds as though it may be more useful to offer a telemedicine consultation with the patient's rather than the patient himself Results & Data Vital Signs (Past 12 Hours) Vital Signs Temp Pulse Resp BP Pulse Ox 02/07/20 06:56 36.5 C 62 17 154/81 H 98 02/06/20 22:59 36.6 C 66 20 153/73 H 98 PG Care Time/CCT Total # of Minutes Spent Total Time Spent with Patient: Total time spent is greater than 50% in coordination of care (as documented) at patient's floor/unit and/or counseling patient: Coding Level of Care Code None Diagnoses Urinary retention R33.9
--- NOTE | 2020-02-07 12:51 | Electrocardiogram Report ---
Test Reason : Blood Pressure : / mmHG Vent. Rate : 075 BPM Atrial Rate : 075 BPM P-R Int : 128 ms QRS Dur : 084 ms QT Int : 398 ms P-R-T Axes : 073 073 -59 degrees QTc Int : 444 ms Normal sinus rhythm with sinus arrhythmia Abnormal ECG When compared with ECG of 05-FEB-2020 21:18, No significant change was found Confirmed by Iam Murdock ([id number]) on 02/07/2020 12:51:12 PM Referred By: REFERRED SELF Confirmed By:Iam Murdock
--- NOTE | 2020-02-07 13:18 | XCELERA ---
[id number]
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
[2020-02-07] MEDS: QUETIAPINE FUMARATE 25 MG TABLET PO PRN (19:19)
[2020-02-07] MEDS: TAMSULOSIN HCL 0.4 MG CAP PO SCH (20:55)
[2020-02-07] MEDS: TRAZODONE HCL 100 MG TAB PO SCH (20:55)
[2020-02-07] MEDS: OLANZapine 10 MG/2.1 ML SDV IM PRN (22:09)
[2020-02-08] MEDS: TRAZODONE HCL 50 MG TAB PO SCH (08:04)
[2020-02-08] MEDS: DIVALPROEX SODIUM SPRINKLE 125 MG CAP PO SCH ×3 (08:04→21:10)
[2020-02-08] MEDS: MoRPHine SULFATE 5 MG/0.25 ML UDP PO PRN (11:43)
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
[2020-02-08] MEDS: QUETIAPINE FUMARATE 25 MG TABLET PO PRN (15:28)
[2020-02-08] MEDS: TAMSULOSIN HCL 0.4 MG CAP PO SCH (21:10)
[2020-02-08] MEDS: TRAZODONE HCL 100 MG TAB PO SCH (21:10)
[2020-02-09] MEDS ORDERED: LACTATED RINGER'S 1,000 ML IV ONE (05:53)
[2020-02-09 06:51] LABS: BUN Creatinine Ratio 28.6 (10-20); Creatinine Clr Calc Pharmacy 70.4 ml/min; Est GFR (African American) 99.4; Est GFR (Non-African American) 85.8; Potassium 3.8 mmol/L (3.5-5.1)
[2020-02-09] MEDS: DIVALPROEX SODIUM SPRINKLE 125 MG CAP PO SCH ×4 (10:15→20:38)
[2020-02-09] MEDS: TRAZODONE HCL 50 MG TAB PO SCH (10:15)
[2020-02-09] MEDS ORDERED: ACETAMINOPHEN 325 MG TAB PO PRN (11:30)
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
[2020-02-09] MEDS: QUETIAPINE FUMARATE 25 MG TABLET PO PRN (16:55)
[2020-02-09] MEDS: TAMSULOSIN HCL 0.4 MG CAP PO SCH ×2 (20:36→20:46)
[2020-02-09] MEDS: TRAZODONE HCL 100 MG TAB PO SCH (20:36)
[2020-02-10] MEDS: DIVALPROEX SODIUM SPRINKLE 125 MG CAP PO SCH ×3 (08:36→20:23)
[2020-02-10] MEDS: TRAZODONE HCL 50 MG TAB PO SCH (08:37)
[2020-02-10] MEDS: QUETIAPINE FUMARATE 25 MG TABLET PO PRN (11:59)
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
[2020-02-10] MEDS: OLANZapine 10 MG/2.1 ML SDV IM PRN (14:06)
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
[2020-02-10] MEDS ORDERED: TRAMADOL HCL 50 MG TABLET PO PRN (16:25)
[2020-02-10] MEDS ORDERED: IOVERSOL 100ml IV PRN (19:37)
--- NOTE | 2020-02-10 20:09 | CT Scan Report ---
CT foot RT w con CLINICAL HISTORY: Toe erythematous in right foot pain. Edema. TECHNIQUE: Transaxial acquisition with multiaxial reformatted images COMPARISON STUDY: None FINDINGS: Mild soft tissue edematous change. This is seen geographically throughout the entire foot. No evidence for abscess or collection. All major bony structures are intact. No evidence for lytic or blastic process. IMPRESSION: Mild soft tissue edema. Otherwise negative study. No evidence for drainable abscess or c ollection. ACT 112: Negative or not required by law. The above report was generated using voice recognition software. It may contain grammatical, syntax or spelling errors. Electronically signed by: Eleazar Davila M.D. 02/10/2020 8:07 PM
[2020-02-10] MEDS: TAMSULOSIN HCL 0.4 MG CAP PO SCH (20:22)
[2020-02-10] MEDS: TRAZODONE HCL 100 MG TAB PO SCH (20:23)
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
[2020-02-11] MEDS ORDERED: TRAMADOL HCL 50 MG TABLET PO PRN (08:17)
[2020-02-11] MEDS: DIVALPROEX SODIUM SPRINKLE 125 MG CAP PO SCH ×3 (08:47→20:51)
[2020-02-11] MEDS: TRAZODONE HCL 50 MG TAB PO SCH (08:47)
[2020-02-11] MEDS ORDERED: ENOXAPARIN INJ 40 MG/0.4 ML SYR SQ SCH (09:00)
[2020-02-11] MEDS: ACETAMINOPHEN 325 MG TAB PO PRN ×2 (13:03→22:33)
[2020-02-11] MEDS: cephALEXin 500 MG CAP PO SCH ×2 (17:15→20:52)
[2020-02-11] MEDS: TAMSULOSIN HCL 0.4 MG CAP PO SCH (20:52)
[2020-02-11] MEDS: TRAZODONE HCL 100 MG TAB PO SCH (20:53)
[2020-02-11] MEDS: QUETIAPINE FUMARATE 25 MG TABLET PO PRN (22:34)
--- NOTE | 2020-02-12 07:57 | Hospitalist Progress Note ---
Date of Service February 12, 2020 Assessment & Plan (1) AMS (altered mental status): secondary to Dementia -Pt is 69 y/o M with H Lewy Body dementia with behavioral disturbance presented to ER via EMS after patient wandered away from the house around 8:30 PM night. Patient was found around 8 AM . EMS reports patient with a temp of 91.2F oral and warming blankets applied. Upon ER arrival rectal temp 36.3C. -AMS secondary to underlying dementia with severe aggressive behavioral concern -hitting, bitting and combative -CT chest showed no acute intracranial finding -management of Lewy Body dementia as below -02/11/2020: As per nursing staff, patient was agitated on 02/10/2020 and Kamar Funez was called. On 02/11/2020, nurse reports that patient is much more cooperative. Patient seen and examined at bedside by medical doctor and and a 1 to 1 staff member was present in patient's room. Patient calm and laying down on the bed. He responds appropriately to medical doctor. he denies shortness of breath. No acute distress. Not in acute pain. But he reports that he feels some left foot pain where there is left foot medial abrasion along the toe and healing dark eschar. Patient denies problems with bowel movement. He denies dysuria. -02/12/2020 updates: patient has been calm and cooperative with staff. no acute issues from 1 to 1 observation nurse aid. Patient breathing on room air. denies acute pain. He does not report of other symptoms. No recen acute issues with urination as per nursing staff (2) Lewy body dementia with behavioral disturbance: -01/02/2020 had small subdural seen at [facility] [place] there had aggressive tendencies and had med changes including discontinuing trazodone, starting Depakote and also started on Valium which was tapered upon discharge. Since returning home reports worsening dementia and aggressive tendencies. Patient follows with Dr. Ronquillo-Edwin psychiatry outpatient. had a recent neuro telemedicine with Dr. Higuera in [facility] on 02/02 that recommended to utilize Trazodone -Continue Depakote 500mg TID for now -Currently on trazodone 100mg HS and 50mg daily ( if patient has to be lethargy, can consider a decrease trazodone to 50mg BID but so far he has been okay) -Case discussed with Psych and recommended to continue Valproic acid 500mg TID and Trazodone current dose -while inpatient, psychiatry recommended prn Zyprexa 2.5 mg IM if severe agitation; Quetiapine prn if moderate agitation -Avoid Benzo /haldol as this could increase agitation and aggressive behavior -has been on 1 to 1 observation as needed while inpatient -Duloxetine can be add for anxiety and agitation as per neurology Dr. Higuera, will defer to psych team at the geriatric behavioral facility -Namenda can be considered for memory as outpatient (3) Abrasion, foot: (4) Cold injury: As cause of Bilateral Foot Abrasions -Tetanus booster given in ER -02/10/2020 CT of Right Foot: Mild soft tissue edema. Otherwise negative study. No evidence for drainable abscess or collection -Wound consult service following the patient; Apply Aquacel Ag and secure with optifoam every other day and as needed. If Aquacel Ag sticks, please saturate with saline and allow to soak off -Dr. Camarena from wound care service called hospitalist team and recommended 7 days of antibiotics for the foot abrasions. Keflex 500 mg BID for 7 course started on 02/11/2020 -02/12/2020 updates: bandages in place of healing ulcers/abrasions of bilateral plantar feet -Follow up with [facility] on [address], [place] [address] (patient's care team at behavioral facility will to call [phone] to schedule for the appointment) (5) Acute electrocardiogram changes: Present on Admission -Possibly from initial hypothermia/cold exposure -On this admission: Troponin x3 negative, Denies any chest pain, Repeat EKG showed no ischemic changes compare to the previous one. ECHO showed no wall motion abnormalities. EF 65 to 70% (6) Urinary retention: -Has been straight cath on this admission -continue to avoid jenkins cath due to pt agitation to avoid any risk injury/trauma. -[facility] and recommended to continue intermittent catheterization than an indwelling catheter -continue tamsulosin 0.4mg qHS as started on this admission -as per previous hospitalist notes: Urology will arrange a telemedicine visit with patient's to further the discussion of fdc management -02/12/2020 updates that recently patient may have some urinary retention under 300cc but he has been able to urinate without catheter (7) Subdural hematoma: History of subdural Hematoma, resolved -had an aggressive behavior episode on 01/02/2020 and was brought to [facility] ER where he had CT head done that showed 3 mm acute subdural hematoma to anterior left frontal and temporal lobes. Then transferred to [facility] [place]. Seen by neurosurgery had repeat CT head which showed resolution of subdural hematoma and no surgical intervention needed. -CT head done on admission showed no acute intracranial abnormality -avoiding pharmacological anticoagulation type medications DVT Prophylaxis: KIMBER hose have been recommended to be on feet as DVT prophylaxis as SCDs have been too restricting of patient's comfort Code status Full Code DISPOSITION: patient is awaiting placement for a care center for dementia. liability claims manager informed that the location will be [facility] in [place] and this can be finalized with a signed 201 by patient's and psychiatry team Admission and Anticipated Discharge Date Admission Date: January 28, 2020 Subjective patient has been calm and cooperative with staff. no acute issues from 1 to 1 observation nurse aid. Patient breathing on room air. denies acute pain. He does not report of other symptoms. No recen acute issues with urination as per nursing staff Review of Systems Review of Systems: All systems reviewed & are unremarkable except as noted in Subjective Physical Exam Constitutional: + thin, cooperative and comfortable Eyes: PERRL, conjunctivae normal, anicteric sclerae ENMT: external ear and nose normal, oropharynx normal Neck: normal visual inspection Respiratory: normal respiratory effort, lungs clear to auscultation Cardiovascular: Rate/Rhythm: regular rate and regular rhythm Gastrointestinal (Abdomen): normal bowel sounds, soft, nontender, no hepatosplenomegaly Skin: + ulcer (bilateral feet ulcers of the plantar feet in bandages) Neurologic: PERRL, EOMI, accommodation nl, no face palsy, no dysarthria Psychiatric: Orientation: alert and cooperative Results & Data Results & Data ([facility]) Vital Signs (Past 12 Hours) Vital Signs Temp Pulse Resp BP Pulse Ox 02/11/20 23:15 36.9 C 75 16 101/59 L 98 (1) Cold injury Encounter type: initial encounter Qualified Code(s): T69.9XXA - Effect of reduced temperature, unspecified, initial encounter
[2020-02-12 08:02] VITALS: TEMP 97.9
[2020-02-12] MEDS: cephALEXin 500 MG CAP PO SCH ×3 (08:40→16:05)
[2020-02-12] MEDS: QUETIAPINE FUMARATE 25 MG TABLET PO PRN (08:40)
[2020-02-12] MEDS: DIVALPROEX SODIUM SPRINKLE 125 MG CAP PO SCH ×2 (08:41→12:50)
[2020-02-12] MEDS: ACETAMINOPHEN 325 MG TAB PO PRN (08:41)
[2020-02-12] MEDS: TRAZODONE HCL 50 MG TAB PO SCH (08:41)
[2020-02-12 13:59] LABS: Basophils # (auto) 0.06 K/uL (0-0.2); Basophils % (auto) 0.7 %; Eosinophils # (auto) 0.22 K/uL (0-0.5); Eosinophils % (auto) 2.4 %; Hematocrit (blood only) 33.9 % (42-52); Hemoglobin 11.4 g/dL (14.0-18.0); Immature Granulocytes # (auto) 0.06 K/uL (0.00-0.02); Immature Granulocytes % (auto) 0.7 %; Lymphocytes % (auto) 22.1 %; Mean Corpuscular Hemoglobin 30.6 pg (25-34); Mean Corpuscular Volume 91.1 fL (80-100); Mean Platelet Volume 10.3 fL (7.4-10.4); Monocytes # (auto) 0.87 K/uL (0.11-0.59); Monocytes % (auto) 9.6 %; Neutrophils # (auto) 5.84 K/uL (1.4-6.5); Neutrophils % (auto) 64.5 %; Platelet Count 209 K/uL (130-400); RDW Standard Deviation 43.1 fL (36.4-46.3); Red Blood Count 3.72 M/uL (4.7-6.1); White Blood Count 9.05 K/uL (4.8-10.8)
[2020-02-12 14:05] LABS: Mean Corpuscular Hgb Conc 33.6 g/dL (32-36)
[2020-02-12 14:20] LABS: Appearance Urine Clear (Clear); Bacteria Urine Automated Negative (Negative); Bilirubin Urine Negative (Negative); Blood Urine Negative (Negative); Color Urine Yellow; Epithelial Cell Urine Auto 0-5 /lpf (0-5); Glucose Urine UA Negative (Negative); Ketones Urine Trace (Negative); Leukocyte Esterase Urine 2+ (Negative); Nitrite Urine Positive (Negative); Protein Urine Trace (Negative); RBC Urine Automated 0-4 /hpf (0-4); Specific Gravity Urine 1.029 (1.000-1.030); Urobilinogen Urine Negative (Negative); WBC Urine Automated >30 /hpf (0-5)
[2020-02-12 14:21] LABS: Albumin Level 2.6 gm/dl (3.4-5.0); BUN Creatinine Ratio 27.1 (10-20); Calcium 8.6 mg/dl (8.5-10.1); Creatinine Clr Calc Pharmacy 84.1 ml/min; Est GFR (African American) 108.8; Est GFR (Non-African American) 93.9; Potassium 4.2 mmol/L (3.5-5.1)
[2020-02-12 14:24] LABS: Albumin Globulin Ratio 0.8 (0.9-2); Bilirubin,Total 0.3 mg/dl (0.2-1); Globulin 3.3 gm/dl (2.5-4.0); Total Protein 5.9 gm/dl (6.4-8.2)
[2020-02-12 15:01] VITALS: O2SAT 99
--- NOTE | 2020-02-12 15:03 | Discharge Summary ---
Date of Service February 12, 2020 Admission HPI Per Admitting Provider Pt is 69 y/o M with PMH Lewy Body dementia with behavioral disturbance presented to ER via EMS after patient wandered away from the house around 8:30 PM last night. History obtained from ER staff and also patient's , Maribell Joshi and outpatient records. (Spoke to Maribell on phone). Patient was found around 8 AM this morning. EMS reports patient with a temp of 91.2F oral and warming blankets applied. Upon ER arrival rectal temp 36.3C. 01/02/2020 patient had aggressive behavior 911 was called and patient was brought to [facility] ER, there was no documented injury. In ER patient was found to have 3 mm acute subdural hematoma to anterior left frontal and temporal lobes and was transferred to [facility]. At [facility] was seen by neurosurgery had repeat CT head which showed resolution of subdural hematoma and no surgical intervention needed. During admission patient had worsening aggression and outbursts and psychiatry and neurology saw patient. Patient's trazodone was stopped and he was started on Depakote and also started on Valium which was tapered upon discharge. Patient had reported increased agitation with Haldol however had improvement with Valium during that admission. Patient was discharged home as was denied placement at memory care facilities. Patient's reports are awaiting bed opening at [facility]. Patient's reports since returning home from [facility] they have been residing in the same house and she has noticed worsening dementia and worsening aggressive tendencies especially in the evening. Patient follows with Dr. Ronquillo-Edwin psychiatry outpatient. was concerned with volume taper was noticing more aggressive tendencies and wondering. Dr. Ronquillo suggested Valium 5 mg every 6 hours as needed agitation/anxiety, resuming trazodone 50 mg at bedtime as needed and continuing Depakote. Pt with no known ETOH or drug use. Unsure where or what pt was doing while missing for 12 hours over night. In ER there was reported that patient initially was saying "ouch" when people were examining his feet. Patient was given Dilaudid 0.5 mg IV. Patient became agitated during ER course and was given Ativan 1 mg IV, Haldol 2 mg and patient currently sedated. Patient received warm IVF and repeat temp 36.8C. In ER patient noted to be in socks and noted to have injury to feet. EKG with T wave inversions anterior and lateral which are new compared to EKG on 01/02/2020 which had nonspecific T wave abnormality. Initial troponin negative. Admit for further observation. Principal Diagnosis AMS (altered mental status) secondary to Lewy Body Dementia with Hypothermia Lewy body dementia with behavioral disturbance Abrasion, dc Cold injury Acute electrocardiogram changes (on admission) Urinary retention Discharge Exam Constitutional + thin, cooperative and comfortable Eyes PERRL, conjunctivae normal, anicteric sclerae ENMT external ear and nose normal, oropharynx normal Neck normal visual inspection Respiratory normal respiratory effort, lungs clear to auscultation Cardiovascular Rate/Rhythm: regular rate and regular rhythm Gastrointestinal (Abdomen) normal bowel sounds, soft, nontender, no hepatosplenomegaly Skin + ulcer (bilateral feet ulcers of the plantar feet in bandages) Neurologic PERRL, EOMI, accommodation nl, no face palsy, no dysarthria Psychiatric Orientation: alert and cooperative Discharge Data Allergies Allergy/AdvReac Type Severity Reaction Status Date / Time haloperidol [From Haldol] AdvReac Severe Verified 01/29/20 12:59 Consultations 01/28/20 12:20 ED Decision to Admit Stat 01/28/20 17:12 Consult Case Management - Discharge Planning Routine Consult Wound Care Provider Routine 01/30/20 21:28 Consult Psychiatry Routine 02/07/20 08:20 Consult Urology Routine Ordered Studies 01/28/20 10:46 CT head/brain wo con Stat 02/10/20 16:22 CT foot RT w con Routine Hospital Course (1) AMS (altered mental status): secondary to Lewy Body Dementia with Hypothermia -Pt is 69 y/o M with H Lewy Body dementia with behavioral disturbance presented to ER via EMS after patient wandered away from the house around 8:30 PM night. Patient was found around 8 AM . EMS reports patient with a temp of 91.2F oral and warming blankets applied. Upon ER arrival rectal temp 36.3C. -AMS secondary to underlying dementia with severe aggressive behavioral concern -hitting, bitting and combative -CT HEAD showed no acute intracranial finding -management of Lewy Body dementia as below -02/11/2020: As per nursing staff, patient was agitated on 02/10/2020 and Code Funez was called. On 02/11/2020, nurse reports that patient is much more cooperative. Patient seen and examined at bedside by medical doctor and and a 1 to 1 staff member was present in patient's room. Patient calm and laying down on the bed. He responds appropriately to medical doctor. he denies shortness of breath. No acute distress. Not in acute pain. But he reports that he feels some left foot pain where there is left foot medial abrasion along the toe and healing dark eschar. Patient denies problems with bowel movement. He denies dysuria. -02/12/2020 updates: patient has been calm and cooperative with staff. no acute issues from 1 to 1 observation nurse aid. Patient breathing on room air. denies acute pain. He does not report of other symptoms. No recen acute issues with urination as per nursing staff (2) Lewy body dementia with behavioral disturbance: -01/02/2020 had small subdural seen at [facility] there had aggressive tendencies and had med changes including discontinuing trazodone, starting Depakote and also started on Valium which was tapered upon discharge. Since returning home reports worsening dementia and aggressive tendencies. Patient follows with Dr. Ronquillo-Edwin psychiatry outpatient. had a recent neuro telemedicine with Dr. Higuera in [facility] on 02/02 that recommended to utilize Trazodone -Continue Depakote 500mg TID for now -Currently on trazodone 100mg HS and 50mg daily ( if patient has to be lethargy, can consider a decrease trazodone to 50mg BID but so far he has been okay) -Case discussed with Psych and recommended to continue Valproic acid (Depakote) 500mg TID and Trazodone current dose -while inpatient, psychiatry recommended prn Zyprexa 2.5 mg IM if severe agitation; Quetiapine prn if moderate agitation -Avoid Benzo /haldol as this could increase agitation and aggressive behavior -has been on 1 to 1 observation as needed while inpatient -Duloxetine can be add for anxiety and agitation as per neurology Dr. Higuera, will defer to psych team at the geriatric behavioral facility -Namenda can be considered for memory as outpatient (3) Abrasion, foot: (4) Cold injury: As cause of Bilateral Foot Abrasions -Tetanus booster given in ER -02/10/2020 CT of Right Foot: Mild soft tissue edema. Otherwise negative study. No evidence for drainable abscess or collection -Wound consult service following the patient; Apply Aquacel Ag and secure with optifoam every other day and as needed. If Aquacel Ag sticks, please saturate with saline and allow to soak off -Dr. Camarena from wound care service called hospitalist team and recommended 7 days of antibiotics for the foot abrasions. Keflex 500 mg BID for 7 course started on 02/11/2020 -02/12/[address]: [address] of healing ulcers/abrasions of bilateral plantar feet -Follow up with [facility] on [address], [place] [address] (patient's care team at [facility] will to call [phone] to schedule for the appointment) (5) Acute electrocardiogram changes: Present on Admission -Possibly from initial hypothermia/cold exposure -On this admission: Troponin x3 negative, Denies any chest pain, Repeat EKG showed no ischemic changes compare to the previous one. ECHO showed no wall motion abnormalities. EF 65 to 70% (6) Urinary retention: -Has been straight cath on this admission -continue to avoid jenkins cath due to pt agitation to avoid any risk i njury/trauma. -[facility] and recommended to continue intermittent catheterization than an indwelling catheter -continue tamsulosin 0.4mg qHS as started on this admission -as per previous hospitalist notes: Urology will arrange a telemedicine visit with patient's to further the discussion of terminal gauger management -02/12/2020 updates that recently patient may have some urinary retention under 300cc but he has been able to urinate without catheter (7) Subdural hematoma: History of subdural Hematoma, resolved -had an aggressive behavior episode on 01/02/2020 and was brought to [facility] ER where he had CT head done that showed 3 mm acute subdural hematoma to anterior left frontal and temporal lobes. Then transferred to [facility]. Seen by neurosurgery had repeat CT head which showed resolution of subdural hematoma and no surgical intervention needed. -CT head done on admission showed no acute intracranial abnormality -avoiding pharmacological anticoagulation type medications DVT Prophylaxis: KIMBER hose have been recommended to be on feet as DVT prophylaxis as SCDs have been too restricting of patient's comfort Code status Full Code DISPOSITION: patient is awaiting placement for a care center for dementia. manager asset management informed that the location will be [facility] [place] and this can be finalized with a signed 201 by patient's and psychiatry team Total Time Total Time Spent Total Time Spent (In Minutes): 40 minutes Total Time Includes: Examination of the Patient, Discharge Planning, Medication Reconciliation and Communication With Other Providers Discharge Plan Discharge Items Patient Disposition: Transfer Behavioral Health Fac Reason For Visit: AMS,H/O DEMENTIA Discharge Diagnosis: AMS (altered mental status) secondary to Lewy Body Dementia with Hypothermia Lewy body dementia with behavioral disturbance Abrasion, dc Cold injury Acute electrocardiogram changes (on admission) Urinary retention Condition on Discharge: Good Activity: Resume your previous activity Non-emergency contact: Primary Care Provider and Psychiatrist Call non-emergency contact if: you have any medication questions and your pain is not controlled Follow-up/Referrals: Vikram Perez, [Primary Care Provider] - Diet: Regular Addtl Attending Provider Instructions: DISCHARGE TO [facility] [place] -01/02/2020 had small subdural seen at [facility] there had aggressive tendencies and had med changes including discontinuing trazodone, starting Depakote and also started on Valium which was tapered upon discharge. Since returning home reports worsening dementia and aggressive tendencies. Patient follows with Dr. Ronquillo-Edwin psychiatry outpatient. had a recent neuro telemedicine with Dr. Higuera in [facility] on 02/02 that recommended to utilize Trazodone -Continue Depakote 500mg TID for now -Currently on trazodone 100mg HS and 50mg daily ( if patient has to be lethargy, can consider a decrease trazodone to 50mg BID but so far he has been okay) -Case discussed with Psych and recommended to continue Valproic acid (Depakote) 500mg TID and Trazodone current dose -while inpatient, psychiatry recommended prn Zyprexa 2.5 mg IM if severe agitation; Quetiapine prn if moderate agitation -Avoid Benzo /haldol as this could increase agitation and aggressive behavior -has been on 1 to 1 observation as needed while inpatient -Duloxetine can be add for anxiety and agitation as per neurology Dr. Higuera, will defer to psych team at the geriatric behavioral facility -Namenda can be considered for memory as outpatient avoiding pharmacological anticoagulation type medications because of history of subdural hematoma (CT head done on admission showed no acute intracranial abnormality) Addtl Tax Manager Provider Instructions: Urinary retention: -Has been straight cath on this admission -continue to avoid jenkins cath due to pt agitation to avoid any risk injury/trauma. -[facility] and recommended to continue intermittent catheterization than an indwelling catheter -continue tamsulosin 0.4mg qHS as started on this admission -as per previous hospitalist notes: Urology will arrange a telemedicine visit with patient's to further the discussion of terminal gauger management -02/12/2020 updates that recently patient may have some urinary retention under 300cc but he has been able to urinate without catheter Abrasion, foot: Cold injury As cause of Bilateral Foot Abrasions -Tetanus booster given in ER -02/10/2020 CT of Right Foot: Mild soft tissue edema. Otherwise negative study. No evidence for drainable abscess or collection -Wound consult service following the patient; Apply Aquacel Ag and secure with optifoam every other day and as needed. If Aquacel Ag sticks, please saturate with saline and allow to soak off -Dr. Camarena from wound care service called hospitalist team and recommended 7 days of antibiotics for the foot abrasions. Keflex 500 mg BID for 7 course started on 02/11/2020 -02/12/2020 updates: bandages in place of healing ulcers/abrasions of bilateral plantar feet Follow up with [facility] on [address], [place] [address] (patient's care team at behavioral facility will to call [phone] to schedule for the appointment) Pending Studies at Discharge: No Stand-Alone Forms: My [facility] Skilled Items DNR: No Lines: None Urinary Catheter: No Medications and DC Order Prescriptions: New quetiapine 25 mg Tablet 25 mg PO Q8 PRN (Reason: agitation) Qty: 10 RF: 0 trazodone 50 mg Tablet 50 mg PO DAILY Qty: 30 RF: 0 trazodone 100 mg Tablet 100 mg PO HS Qty: 30 RF: 0 divalproex 125 mg Capsule, Delayed Rel Sprinkle 500 mg PO TID Qty: 30 RF: 0 tamsulosin 0.4 mg Capsule 0.4 mg PO HS 30 Days Qty: 30 RF: 0 cephalexin 500 mg Capsule 500 mg PO QID 7 Days Qty: 28 RF: 0 acetaminophen 325 mg tablet 325 mg PO Q6H PRN (Reason: fever or pain) 7 Days Qty: 28 RF: 0 tramadol 50 mg Tablet 25 mg PO Q6H PRN (Reason: moderate to severe pain) 4 Days Qty: 8 RF: 0 Discontinued trazodone 50 mg tablet 50 mg PO HS PRN (Reason: Insomnia) RF: 0 divalproex 500 mg tablet,delayed release (DR/EC) 500 mg PO TID RF: 0 diazepam 5 mg tablet 5 mg PO BID RF: 0 diazepam 5 mg tablet 5 mg PO Q6H PRN (Reason: Agitation) RF: 0 Discharge Orders: Discharge Order (Routine); Ordered 02/12/20 Ordered By: Yaron Cisse Admission Data Admit Date/Time: 01/28/20 12:47 Attending Provider: Yaron Cisse Admit Provider: Ramona Bauer Primary Care Provider: Vikram Perez Other Providers: Ramona aBuer ; Hitesh Camarena ; Lacey Gold ; Marychuy Funes ; Dagoberto Loya
[2020-02-12 16:44] VITALS: BP 101/59; PULSE 80
== END 2020-02-12 17:18 | DRG 57 ==
LOC: ED 09:17 → SUATTDRO 12:47 → 2N 12:47 → 3E 02-07 20:41